=== PATIENT | male | born 1955 | race Caucasian/White ===

== ENCOUNTER 2016-08-24 00:13 | Emergency (ER) | payer SELFPAY ==
[~2016-08-24] VITALS: Ht 177.8 cm; Wt 93.0 kg
[~2016-08-24 00:13] MED LIST: ALPR0.5T PO; BUSP7.5T5 PO; CEPH-507 PO; FAMO-119 PO; HYDR-3729 PO; HYDR-3781 PO; HYDR25CA PO; HYDR28CR2 TP; METH4TAB PO; MOME15CR17 TP; MOME45CR19 TP; PRD20T PO; PRED5TAB PO; RT-ALBUINH IH
--- OUTSIDE RECORDS SUMMARY | 2016-08-24 00:21 | XMS REPORT | Continuity of Care Document ---
Author Author [facility] Organization [facility] Address Unknown Phone Unavailable Care Team Providers Care Certified Physician'S Assistant Name Role Phone NO, LOCAL PHYSICIAN PCP Unavailable Insurance Providers Payer Name Policy Number Subscriber Name Relationship Self Pay Master Hebert 18 Self / Same As Patient Advance Directives Directive Response Recorded Date/Time Advance Directives No 06/25/16 2:55pm Resuscitation Status Full Code 06/25/16 2:55pm Chief Complaint and Reason for Visit Chief Complaint Allergic Reaction Reason for Visit [id number] Problems Active Problems Medical Problem Onset Date Status Atopic dermatitis Unknown Acute Nummular eczematous dermatitis Unknown Acute Personal history of asthma Unknown Acute Rash and nonspecific skin eruption Unknown Acute Medications Current Home Medications Medication Dose Units Route Directions Days/Qty Instructions Start Date Prednisone 5 Mg 50 Mg Oral As Directed 55 10 tablets on day 1, then reduced by one tablet daily until gone 04/21/16 Cephalexin 500 Mg 500 Mg Oral Three Times A Day 21 04/21/16 Prednisone 20 Mg 40 Mg Oral Daily 10 05/24/16 Famotidine 20 Mg 20 Mg Oral Twice A Day 30 05/24/16 Mometasone Furoate 15 Gm 15 Gm Topical Daily 1 05/24/16 Albuterol Sulfate 18 Gm 2 Puff Inhalation Every 4HRS as needed for Shortness Of Breath 1 05/24/16 Hydrocodone/Acetaminophen 1 Each 1 Each Oral Every 4HRS as needed for Pain 20 05/24/16 Mometasone Furoate 45 Gm 45 Gm Topical Daily 1 06/07/16 Methylprednisolone 4 Mg 4 Mg Oral As Directed 1 Take per package directions 06/07/16 Hydroxyzine Pamoate 25 Mg 25 Mg Oral Every 6 Hours 30 10/24/16 Alprazolam 0.5 Mg 0.5 Mg Oral Every 8HRS as needed for Anxiety 15 Cephalexin 500 Mg 1,000 Mg Oral Twice A Day 40 06/25/16 Hydroxyzine Pamoate 25 Mg 25-50 Mg Oral Every 6 Hours as needed for Rash/ Itch 30 06/25/16 Famotidine 20 Mg 20 Mg Oral Twice A Day for Rash/Itch 60 06/25/16 Social History Social History Problem Response Recorded Date/Time Alcohol Use Denies Use 06/25/2016 2:55pm Recreational Drug Use No 06/25/2016 2:55pm Recent Foreign Travel No 06/25/2016 2:55pm Recent Infectious Disease Exposure No 06/25/2016 2:55pm Hospitalization with Isolation Denies 06/25/2016 2:55pm Smoking Status Current Everyday Smoker 06/25/2016 2:55pm Type Used Cigarettes 06/25/2016 2:55pm Recent Hopitalizations No 06/07/2016 5:15pm Hospitalization with Isolation Denies 06/25/2016 2:55pm Query Response Start Date Stop Date Smoking Status Current Everyday Smoker Hospital Discharge Instructions No hospital discharge instructions. Plan of Care Discharge Date 06/25/16 8:41pm Disposition 01 HOME, SELF-CARE Condition at Discharge Stable Instructions/Education Provided Eczema (Atopic Dermatitis) (DC) Prescriptions See Medication Section Referrals ARASELI VO MD - Additional Instructions/Education All discharge instructions reviewed with patient and/or family. Voiced understanding. FOLLOW UP WITH DR. VO. PROBABLY NEED A DERMATOLOGY REFERRAL. Functional Status No functional status results. Allergies, Adverse Reactions, Alerts No known allergies. Immunizations No immunization records. Vital Signs Acute Vital Signs Vital Response Date/Time Temperature (Fahrenheit) 96.9 degrees F (97.6 - 99.5) 06/25/2016 2:55pm Temperature (Calculated Celsius) 36.97592 degrees C (36.4 - 37.5) 06/25/2016 2:55pm Temperature Source Temporal 06/07/2016 6:20pm Pulse Rate (adult) 113 bpm (60 - 90) 06/25/2016 2:55pm Respiratory Rate 20 bpm (12 - 24) 06/25/2016 2:55pm O2 Sat by Pulse Oximetry 99 % (88 - 100) 06/25/2016 2:55pm Blood Pressure 126/82 mm Hg 06/25/2016 2:55pm Blood Pressure Mean 97 mm Hg 06/25/2016 2:55pm Pain Numeric Pain Scale 6 06/25/2016 2:55pm Height (Feet) 6 feet 06/25/2016 2:55pm Height (Inches) 10 inches 06/07/2016 5:15pm Height (Calculated Centimeters) 182.676276 cm 06/25/2016 2:55pm Weight (Pounds) 240 pounds 06/25/2016 2:55pm Weight (Calculated Grams) 955312.284 gm 06/07/2016 5:15pm Weight (Calculated Kilograms) 108.245663 kilograms 06/25/2016 2:55pm Capillary Refill Capillary Refill Less Than 3 Seconds 06/25/2016 2:55pm Height 6 ft 0 in Weight 240 lb Body Mass Index 32.5 kg/m^2 Results Pending Laboratory Results Test Name Collection Date/Time Procedures No known history of procedures. Encounters Encounter Location Arrival/Admit Date Discharge/Depart Date Attending Provider Departed Emergency Room [facility] 06/25/16 2:36pm 06/25 8:41pm HONEY WIN DO Departed Emergency Room [facility] 06/07/16 4:15pm 06/07 6:20pm SHEEBA PHILLIPS MD Recent Diagnosis
[2016-08-24 00:41] LABS: BASOPHILS % (AUTO) 0 % (0-10); EOSINOPHILS # (AUTO) 2.8 10^3/uL (0.0-0.3); EOSINOPHILS % (AUTO) 18 % (0-10); LYMPHOCYTES # (AUTO) 2.3 X 10^3 (1.0-4.0); LYMPHOCYTES % (AUTO) 15 % (12-44); MEAN CORPUSCULAR HEMOGLOBIN 30 PG (25-34); MEAN CORPUSCULAR HGB CONC 32 G/DL (32-36); MEAN CORPUSCULAR VOLUME 91 FL (80-99); MEAN PLATELET VOLUME 9.6 FL (7.4-10.4); MONOCYTES # (AUTO) 1.1 X 10^3 (0.0-1.0); MONOCYTES % (AUTO) 7 % (0-12); NEUTROPHILS # (AUTO) 9.3 X 10^3 (1.8-7.8); NEUTROPHILS % (AUTO) 60 % (42-75); PLATELET COUNT 267 10^3/uL (130-400); RED BLOOD COUNT 4.98 10^6/uL (4.35-5.85); RED CELL DISTRIBUTION WIDTH 13.6 % (10.0-14.5); WHITE BLOOD COUNT 15.5 10^3/uL (4.3-11.0)
[2016-08-24] MEDS ORDERED: diphenhydrAMINE 50 MG/ML INJ (BENADRYL) IVP ONE (00:45)
[2016-08-24] MEDS ORDERED: FAMOTIDINE 20MG/2ML IV (PEPCID) IVP ONE (00:45)
[2016-08-24 00:58] LABS: BAND NEUTROPHILS 0 %; BASOPHILS % (MANUAL) 0 %; EOSINOPHILS % (MANUAL) 20 %; LYMPHOCYTES % (MANUAL) 11 %; NEUTROPHILS % (MANUAL) 61 %
[2016-08-24 01:00] LABS: ALANINE AMINOTRANSFERASE 40 U/L (0-55); ALBUMIN 3.9 G/DL (3.2-4.5); ANION GAP 15 MMOL/L (5-14); ASPARTATE AMINO TRANSFERASE 36 U/L (5-34); BILIRUBIN,TOTAL 1.2 MG/DL (0.1-1.0); BLOOD UREA NITROGEN 14 MG/DL (7-18); BUN/CREATININE RATIO 14; CARBON DIOXIDE 21 MMOL/L (21-32); CHLORIDE 102 MMOL/L (98-107); CREATININE SERUM 1.01 MG/DL (0.60-1.30); GFR ESTIMATED > 60; GLUCOSE 111 MG/DL (70-105); SODIUM 138 MMOL/L (135-145); hs C REACTIVE PROTEIN 3.69 MG/DL (0.00-0.50)
[2016-08-24 01:06] LABS: POTASSIUM 4.1 MMOL/L (3.6-5.0)
[2016-08-24 01:08] LABS: BILIRUBIN,URINE NEGATIVE (NEGATIVE); KETONES,URINE NEGATIVE (NEGATIVE); LEUKOCYTE ESTERASE ,URINE 1+ (NEGATIVE); NITRITE,URINE NEGATIVE (NEGATIVE); PH,URINE 7 (5-9); PROTEIN,URINE 2+ (NEGATIVE); UROBILINOGEN,URINE 1 MG/DL (NORMAL)
[2016-08-24 01:11] LABS: ERYTHROCYTE SEDIMENTATION RATE 9 MM/HR (0-30)
--- NOTE | 2016-08-24 01:27 | ED Integumentary General ---
General Chief Complaint: Skin/Wound Problems Stated Complaint: ARMS,LEGS & NECK SWELLING Nursing Triage Note: patient reports arms swelling and burning. reports has a whole body rash and burning x 6 months Source: patient, old records Exam Limitations: no limitations History of Present Illness Time seen by provider: 00:17 Initial Comments This 60-year-old gentleman presents to the emergency room with complaints of nearly diffuse skin irritation, erythema, swelling, and itching. He has had waxing and waning episodes of these symptoms over the past month. He has been seen multiple times previously and prescribed antibiotics and steroids. Treatment in the past has helped improve symptoms. He denies any use of supplements, topical products, or medications that have not been prescribed. He cannot identify any specific exposure that might have caused this problem. He has been taking 2 showers a day to try to treat the problem. He moved to [place] from [place] a few months before symptoms began. He wonders if there is an environmental exposure causing the symptoms. He has been taking Claritin daily without any significant change. He does believe prior treatment with antibiotics and steroids did improve his symptoms temporarily. Allergies and Home Medications Allergies Coded Allergies: Penicillins (Unverified Allergy, Unknown, 08/11/16) Home Medications Albuterol Sulfate 18 Gm Hfa.aer.ad #1 2 PUFF IH Q4H PRN PRN SHORTNESS OF BREATH Prescribed by: PHAN VIVEROS on 05/24/16 184 Alprazolam 0.5 Mg Tablet #15 0.5 MG PO Q8H PRN PRN ANXIETY Prescribed by: SHEEBA PHILLIPS on 06/07/16 1808 Buspirone HCl 7.5 Mg Tablet #30 7.5 MG PO BID Prescribed by: TANMAY ZAVALA on 08/11/16 1633 Doxycycline Hyclate 100 Mg Tablet.dr #20 100 MG PO BID Prescribed by: KATY BERGMAN on 08/24/16 0248 Famotidine 20 Mg Tablet #30 20 MG PO BID Prescribed by: PHAN VIVEROS on 05/24/16 1842 Hydrocodone/Acetaminophen 1 Each Tablet #20 1 EACH PO Q4H PRN PRN PAIN Prescribed by: PHAN VIVEROS on 05/24/16 1913 Hydrocodone/Acetaminophen 1 Each Tablet #10 1 EACH PO Q6H PRN PRN PAIN Prescribed by: KATY BERGMAN on 08/24/16247 Hydrocortisone 28 Gm Cream..g. #1 28 GM TP TID PRN PRN it Prescribed by: TANMAY ZAVALA on 08/11/16 1633 Hydroxyzine Pamoate 25 Mg Capsule #30 25 MG PO Q6H Prescribed by: SHEEBA PHILLIPS on 06/07/161807 Mometasone Furoate 15 Gm Cream..g. #1 15 GM TP DAILY Prescribed by: PHAN VIVEROS on 05/24/16 184 Mometasone Furoate 45 Gm Cream..g. #1 45 GM TP DAILY Prescribed by: SHEEBA PHILLIPS on 06/07/161807 Prednisone 20 Mg Tab #4 20 MG PO DAILY Prescribed by: KATY BERGMAN on 08/24/16247 Constitutional: no symptoms reported EENTM: no symptoms reported Respiratory: cough Cardiovascular: no symptoms reported Gastrointestinal: no symptoms reported Genitourinary: no symptoms reported Musculoskeletal: no symptoms reported Skin: see HPI Psychiatric/Neurological: Anxiety Endocrine: No Symptoms Reported Past Uqxvfir-Xktfdb-Tlqgbu Hx Patient Social History Alcohol Use: Denies Use Recreational Drug Use: No Smoking Status: Current Everyday Smoker Type Used: Cigarettes Recent Foreign Travel: No Contact w/Someone Who Travel: No Recent Infectious Disease Expo: No Recent Hopitalizations: No Physical Abuse Screen: No Sexual Abuse: No Seasonal Allergies Seasonal Allergies: No Surgeries HX Surgeries: No Respiratory Hx Respiratory Disorders: Yes Respiratory Disorders: Asthma Cardiovascular Hx Cardiac Disorders: No Neurological Hx Neurological Disorders: No Reproductive System Hx Reproductive Disorders: No Genitourinary Hx Genitourinary Disorders: No Gastrointestinal Hx Gastrointestinal Disorders: No Musculoskeletal Hx Musculoskeletal Disorders: No Endocrine Hx Endocrine Disorders: No HEENT HX ENT Disorders: No Cancer Hx Cancer: No Psychosocial Hx Psychiatric Problems: No Integumentary HX Skin/Integumentary Disorder: Yes Skin/Integumentary Disorders: Pruritis (With dermatitis), Recent Skin Changes Blood Transfusions Hx Blood Disorders: No Family Medical History Significant Family History: No Pertinent Family Hx Physical Exam Vital Signs Vital Sign - Last 12Hours 08/24/16 08/24/16 00:20 02:56 Temp 99.1 Pulse 114 Resp 18 B/P 142/89 Pulse Ox 95 O2 Delivery Room Air Capillary Refill : Less Than 3 Seconds General Appearance: WD/WN moderate distress HEENT: PERRL/EOMI normal ENT inspection TMs normal pharynx normal Neck: supple normal inspection Cardiovascular: no edema no murmur tachycardia Respiratory: lungs clear normal breath sounds no respiratory distress no accessory muscle use Gastrointestinal: normal bowel sounds non tender soft Extremities: swelling Neurologic/Psychiatric: deputy commissioner II-XII nml as tested no motor/sensory deficits alert oriented x 3 other (Mild tremor, anxious) Skin: warm/dry other (Erythematous rash covering much of the body but sparing the face, hands, feet, and genitals. The rash causes skin edema, erythema, pruritus, and flaking.) Skin Problem Location: generalized Skin Problem Character: erythema, rash, tenderness, thickening, warm Progress/Results/Core Measures Results/Orders Lab Results Laboratory Tests Test 08/24/16 00:25 08/24/16 01:01 Range/Units Alanine Aminotransferase (ALT/SGPT) 40 0-55 U/L Albumin 3.9 3.2-4.5 G/DL Alkaline Phosphatase 67 40-136 U/L Anion Gap 15 H 5-14 MMOL/L Aspartate Amino Transf (AST/SGOT) 36 H 5-34 U/L BUN/Creatinine Ratio 14 Band Neutrophils 0 % Basophils # (Auto) 0.0 0.0-0.1 10^3/uL Basophils % (Manual) 0 % Basophils (%) (Auto) 0 0-10 % Blood Morphology Comment NORMAL Blood Urea Nitrogen 14 7-18 MG/DL C-Reactive Protein High Sensitivity 3.69 H 0.00-0.50 MG/DL Calcium Level 9.0 8.5-10.1 MG/DL Carbon Dioxide Level 21 21-32 MMOL/L Chloride Level 102 98-107 MMOL/L Creatinine 1.01 0.60-1.30 MG/DL Eosinophils # (Auto) 2.8 H 0.0-0.3 10^3/uL Eosinophils % (Manual) 20 % Eosinophils (%) (Auto) 18 H 0-10 % Erythrocyte Sedimentation Rate 9 0-30 MM/HR Estimat Glomerular Filtration Rate > 60 Glucose Level 111 H 70-105 MG/DL Hematocrit 46 40-54 % Hemoglobin 14.7 13.3-17.7 G/DL Lymphocytes # (Auto) 2.3 1.0-4.0 X 10^3 Lymphocytes % (Manual) 11 % Lymphocytes (%) (Auto) 15 12-44 % Mean Corpuscular Hemoglobin 30 25-34 PG Mean Corpuscular Hemoglobin Concent 32 32-36 G/DL Mean Corpuscular Volume 91 80-99 FL Mean Platelet Volume 9.6 7.4-10.4 FL Monocytes # (Auto) 1.1 H 0.0-1.0 X 10^3 Monocytes % (Manual) 8 % Monocytes (%) (Auto) 7 0-12 % Neutrophils # (Auto) 9.3 H 1.8-7.8 X 10^3 Neutrophils % (Manual) 61 % Neutrophils (%) (Auto) 60 42-75 % Platelet Count 267 130-400 10^3/uL Potassium Level 4.1 3.6-5.0 MMOL/L Red Blood Count 4.98 4.35-5.85 10^6/uL Red Cell Distribution Width 13.6 10.0-14.5 % Sodium Level 138 135-145 MMOL/L TSH Morris Testing 1.39 0.35-4.94 UIU/ML Total Bilirubin 1.2 H 0.1-1.0 MG/DL Total Protein 7.0 6.4-8.2 G/DL White Blood Count 15.5 H 4.3-11.0 10^3/uL Urine Bacteria TRACE /HPF Urine Bilirubin NEGATIVE NEGATIVE Urine Casts NONE /LPF Urine Clarity CLEAR Urine Color YELLOW Urine Crystals NONE /LPF Urine Culture Indicated YES Urine Glucose (UA) NEGATIVE NEGATIVE Urine Ketones NEGATIVE NEGATIVE Urine Leukocyte Esterase 1+ H NEGATIVE Urine Mucus NEGATIVE /LPF Urine Nitrite NEGATIVE NEGATIVE Urine Protein 2+ H NEGATIVE Urine RBC 5-10 H /HPF Urine RBC (Auto) 2+ H NEGATIVE Urine Specific [place] 1.010 L 1.016-1.022 Urine Urobilinogen 1 NORMAL MG/DL Urine WBC 2-5 /HPF Urine pH 7 5-9 My Orders Orders-KATY KIM MD Cbc With Automated Diff (08/24/16 00:28) Comprehensive Metabolic Panel (08/24/16 00:28) Hs C Reactive Protein (08/24/16 00:28) Erythrocyte Sedimentation Rate (08/24/16 00:28) Thyroid Analyzer (08/24/16 00:28) Ua Culture If Indicated (08/24/16 00:28) Saline Lock/Iv-Start (08/24/16 00:28) Chest 1 View, Ap/Pa Only (08/24/16 00:28) Diphenhydramine Injection (Benadryl Inje (08/24/16 00:45) Famotidine Injection (Pepcid Injection) (08/24/16 00:45) Manual Differential (08/24/16 00:25) Urine Culture (08/24/16 01:01) Methylprednisolone Sod Succ (Solu-Medrol (08/24/16 01:30) Lorazepam Injection (Ativan Injection) (08/24/16 01:30) Hydrocodone/Apap 5/325 Tablet (Lortab 5 (08/24/16 02:45) Doxycycline Tablet (Vibramycin Tablet) (08/24/16 02:45) Medications Given in ED Current Medications Medications Dose Ordered Sig/Rita Route Start Time Stop Time Status Last Admin Dose Admin Acetaminophen/ Hydrocodone Bitart 1 tab ONCE ONCE PO 08/24/16 02:45 08/24/16 02:46 DC 08/24/16 02:42 1 TAB Diphenhydramine HCl 50 mg ONCE ONCE IVP 08/24/16 00:45 08/24/16 00:46 DC 08/24/16 00:48 50 MG Doxycycline Hyclate 100 mg ONCE ONCE PO 08/24/16 02:45 08/24/16 02:46 DC 08/24/16 02:42 100 MG Famotidine 20 mg ONCE ONCE IVP 08/24/16 00:45 08/24/16 00:46 DC 08/24/16 00:48 20 MG Lorazepam 0.5 mg ONCE ONCE IVP 08/24/16 01:30 08/24/16 01:31 DC 08/24/16 01:35 0.5 MG Methylprednisolone Sodium Succinate 125 mg ONCE ONCE IVP 08/24/16 01:30 08/24/16 01:31 DC 08/24/16 01:24 125 MG Vital Signs/I&O Vital Sign - Last 12Hours 08/24/16 08/24/16 00:20 02:56 Temp 99.1 98.0 Pulse 114 105 Resp 18 18 B/P 142/89 Pulse Ox 95 96 O2 Delivery Room Air Blood Pressure Mean: 106 Progress Note : Progress Note Benadryl and Pepcid did not seem to improve his symptoms much. Solu-Medrol was then administered and did start to improve his symptoms. Because of his rash is uncertain but may be related to allergic exposure. He does have a notably elevated eosinophil level. Chest x-ray showed some increased density in the right lower lung which could be atelectasis versus infiltrate. Doxycycline was initiated along with his other medications. Patient has appointment with the guest laundry attendant in [place] tomorrow. He then plans to fly back to [place]. The disc of his x-ray was provided. He was encouraged to send a copy of his records from [facility] to his guest laundry attendant. Pain was treated with hydrocodone. Ativan was given for anxiety. Diagnostic Imaging Diagonstic Imaging: Xray Plain Films/CT/US/NM/MRI: chest Comments Chest x-ray viewed by me. Report not yet available. There is density in the right lower lung indicative of atelectasis versus infiltrate. Departure Impression Impression: Primary Impression: Dermatitis Additional Impressions: Eosinophilia Pulmonary infiltrate Disposition: HOME, SELF-CARE Condition: Improved Departure-Patient Inst. Decision time for Depature: 02:39 Referrals: NO,LOCAL PHYSICIAN (PCP/Family) Primary Care Physician Patient Instructions: Dermatitis Add. Discharge Instructions: Complete doxycycline as prescribed and have a repeat chest x-ray performed after antibiotics are complete. The markings on your chest x-ray may be related to early pneumonia. For itch you may use triamcinolone cream as prescribed and a small quantity of Benadryl (diphenhydramine) topical cream. Limit showering to no more than one shower per day. Keep your appointment with the guest laundry attendant tomorrow. When you have your guest laundry attendant contact information, please have records sent from [facility] to his/her office. Take the disc of your chest x-ray to your follow-up appointments. Continue taking Claritin (loratadine) but increase your dose to 10 mg twice daily. Return to the emergency room if symptoms worsen. All discharge instructions reviewed with patient and/or family. Voiced understanding. Scripts Prednisone 20 Mg Tab20 Mg PO DAILY #4 TAB Prov:KATY KIM MD 08/24/16 Hydrocodone/Acetaminophen (Hydrocodon -Acetaminophen 5-325)1 Each Tablet1 Each PO Q6H PRN PAIN #10 TAB Prov:KATY KIM MD 08/24/16 Doxycycline Hyclate 100 Mg Tablet.dr100 Mg PO BID #20 TAB Prov:KATY KIM MD 08/24/16 KATY KIM MD Aug 24, 2016 01:27
[2016-08-24] MEDS ORDERED: LORazepam INJ 2 MG/ML (ATIVAN) VIAL IVP ONE (01:30)
[2016-08-24] MEDS ORDERED: methylPREDNISolone 125 MG (Solu-MEDROL) VIAL IVP ONE (01:30)
[2016-08-24] MEDS ORDERED: HYDROcodone/APAP 5 MG/325 MG (LORTAB) TAB PO ONE (02:45)
[2016-08-24] MEDS ORDERED: DOXYCYCLINE 100 MG (VIBRAMYCIN) TABLET PO ONE (02:45)
[2016-08-24] MEDS ORDERED: DOXY-227 PO (02:48)
[2016-08-24] MEDS ORDERED: PRD20T PO (02:48)
[2016-08-24] MEDS ORDERED: HYDR-3812 PO (02:48)
[2016-08-24 02:56] VITALS: BP 136/88
--- NOTE | 2016-08-24 06:40 | Diagnostic Imaging Report ---
INDICATION: Arm swelling and burning. No comparison. FINDINGS: There is discoid atelectasis with possible infiltrate as well noted in the right lower lung. Left lung is well aerated and clear. The heart is not enlarged. No evidence of pulmonary edema. No hilar adenopathy. No pneumothorax or pleural effusion. IMPRESSION: Right basilar atelectasis with possible infiltrate as well. Followup recommended. Dictated by: Dictated on workstation # [id number]
== END 2016-08-24 02:55 | disposition home or self-care (01) ==
LOC: EDUNIT# 00:13 → ER 00:17
DX: L30.9 Dermatitis, unspecified (principal); J82 Pulmonary eosinophilia, not elsewhere classified; F17.210 Nicotine dependence, cigarettes, uncomplicated
CPT/HCPCS: 36415; 71010; 80053; 81000; 84443; 85007; 85027; 85652; 86141; 87088; 96374; 96375

== ENCOUNTER 2018-03-02 04:44 | Emergency (ER) | payer SELFPAY ==
[~2018-03-02] VITALS: Ht 177.8 cm; Wt 100.7 kg
[~2018-03-02 04:44] MED LIST changes: +ACHD5005 PO; +DOXY-227 PO
--- NOTE | 2018-03-02 05:39 | ED Integumentary General ---
General Chief Complaint: Skin/Wound Problems Stated Complaint: POSS POISON JENI OR OAK Source: patient, old records Exam Limitations: no limitations History of Present Illness Date Seen by Provider: Mar 02, 2018 Time Seen by Provider: 05:27 Initial Comments The patient presents to the ER by private conveyance with a chief complaint he is not able sleep for the past couple days because of his itching skin rash from the neck down. He says that it spares mucous membranes and genitalia. He says about a month ago he had this rash when he was up here but then he went back home to [place] and came back. When he was in [place] his doctor prescribed an antibiotic and it went away but he does not what the name of it was. As soon as he got back up here the rash started within about 6 or 7 days and has been driving him nuts the itching. His been using Benadryl off and on but says it doesn't help. He says he does not have any more of the Zyrtec was prescribed to him so he hasn't taken that. [facility] 2[facility]2 weeks ago and they put him on prednisone and Zyrtec and again that helped immensely but as soon as she stopped taking it shortly after it came back. He does not have any formal diagnosis of any skin disorders. He thinks it might be the carpet in his home that he put in because that is when his problems started. He's been seen in the past for similar eczematous skin disorders. He insists that they only occur when he is in [place]. He is using calamine lotion. Allergies and Home Medications Allergies Coded Allergies: Penicillins (Unverified Allergy, Unknown, 08/11/16) Home Medications Albuterol Sulfate 18 Gm Hfa.aer.ad, 2 PUFF IH Q4H PRN for SHORTNESS OF BREATH Prescribed by: PHAN VIVEROS on 05/24/16 184 Alprazolam 0.5 Mg Tablet, 0.5 MG PO Q8H PRN for ANXIETY Prescribed by: SHEEBA PHILLIPS on 06/07/16 1808 Buspirone HCl 7.5 Mg Tablet, 7.5 MG PO BID Prescribed by: TANMAY ZAVALA on 08/11/16 1633 Doxycycline Hyclate 100 Mg Tablet.dr, 100 MG PO BID Prescribed by: KATY BERGMAN on 08/24/16247 Famotidine 20 Mg Tablet, 20 MG PO BID Prescribed by: PHAN VIVEROS on 05/24/161841 Hydrocodone Bit/Acetaminophen 1 Each Tablet, 1 EACH PO Q6H PRN for PAIN Prescribed by: KATY BERGMAN on 08/24/16247 Hydrocodone/Acetaminophen 1 Each Tablet, 1 EACH PO Q4H PRN for PAIN Prescribed by: PHAN VIVEROS on 05/24/161912 Hydrocortisone 28 Gm Cream..g., 28 GM TP TID PRN for it Prescribed by: TANMAY ZAVALA on 08/11/16 163 Hydroxyzine Pamoate 25 Mg Capsule, 25 MG PO Q6H Prescribed by: SHEEBA PHILLIPS on 06/07/161807 Mometasone Furoate 15 Gm Cream..g., 15 GM TP DAILY Prescribed by: PHAN VIVEROS on 05/24/161841 Mometasone Furoate 45 Gm Cream..g., 45 GM TP DAILY Prescribed by: SHEEBA PHILLIPS on 06/07/161807 Prednisone 20 Mg Tab, 20 MG PO DAILY Prescribed by: KATY BERGMAN on 08/24/16247 Patient Home Medication List Home Medication List Reviewed: Yes Constitutional: No chills, No diaphoresis EENTM: No ear pain, No eye pain Respiratory: No cough, No short of breath Cardiovascular: No chest pain, No palpitations Gastrointestinal: No abdominal pain, No nausea, No vomiting Genitourinary: No discharge, No dysuria Musculoskeletal: No back pain, No joint pain Skin: see HPI, pruritus, rash Psychiatric/Neurological: Denies Headache, Denies Numbness Past Ygkzozp-Ztstmf-Ruiixk Hx Patient Social History Alcohol Use: Occasionally Uses Alcohol Beverage of Choice: CamioCamch Recreational Drug Use: No Smoking Status: Former Smoker Type Used: Cigarettes Former Smoker, Quit: Aug 15, 2016 Recent Foreign Travel: No Contact w/Someone Who Travel: No Recent Hopitalizations: No Seasonal Allergies Seasonal Allergies: No Past Medical History Surgeries: No Respiratory: Yes Asthma Cardiac: No Neurological: No Reproductive Disorders: No Genitourinary: No Gastrointestinal: No Musculoskeletal: No Endocrine: No Cancer: No Psychosocial: No Integumentary: Yes (chronic since 2016 reocurrance Eczematous vs contatc dermatitis) Eczema, Pruritis, Recent Skin Changes Blood Disorders: No Family Medical History No Pertinent Family Hx Physical Exam Vital Signs Capillary Refill : General Appearance: WD/WN, no apparent distress HEENT: PERRL/EOMI, pharynx normal Cardiovascular: normal peripheral pulses, regular rate, rhythm Respiratory: no respiratory distress, no accessory muscle use Neurologic/Psychiatric: alert, normal mood/affect, oriented x 3 Skin: normal color, warm/dry, rash (thickened, eczematous, raised, plaques and patches especially in the creases of the elbow and behind the knee. Ever in calamine lotion. Pruritic.) Progress/Results/Core Measures Results/Orders My Orders Orders - LASHON MITCHELL Hydroxyzine Oral (Vistaril Capsule) (03/02/18 05:45) Methylprednisolone Sod Succ (Solu-Medrol (03/02/18 05:45) Progress Progress Note : Time: 05:38 Progress Note Consistent with contact dermatitis. We plan to Give him some Vistaril and a slug of Solu-Medrol. We will put him on another 5 days of prednisone and encourage him to take Zyrtec twice a day as well as Vistaril as needed for breakthrough itching. Departure Impression Primary Impression: Allergic contact dermatitis Qualified Codes: L23.9 - Allergic contact dermatitis, unspecified cause Disposition: 01 HOME, SELF-CARE Condition: Stable Departure-Patient Inst. Decision time for Depature: 05:39 Referrals: NO,LOCAL PHYSICIAN (PCP/Family) Primary Care Physician Patient Instructions: Contact Dermatitis (DC) Add. Discharge Instructions: travel occupational therapist the prednisone and take 2 tablets daily for the next 5 days starting tomorrow. travel occupational therapist Zyrtec and take one tablet twice a day until not needed. travel occupational therapist the Vistaril and if you have breakthrough itching you can take one tablet of Vistaril every 6 hours as needed. Vistaril will cause drowsiness. Drink plenty of fluids. Cover the scan and a mild, hypoallergenic lotion or ointment such as Eucerin, Nutraderm, etc. Follow-up with your primary care provider in the next couple weeks and consider referral to dermatology or an fuel injection servicer. All discharge instructions reviewed with patient and/or family. Voiced understanding. Scripts Cetirizine HCl (Zyrtec) 10 Mg Capsule 10 MG PO BID for 14 Days, #30 CAP 0 Refills Prov: LASHON MITCHELL 03/02/18 Hydroxyzine Pamoate (Vistaril) 25 Mg Capsule 25 MG PO Q6H PRN for ITCHING for 14 Days, #30 CAP 0 Refills Prov: LASHON MITCHELL 03/02/18 Prednisone (Prednisone) 20 Mg Tab 40 MG PO DAILY, #10 TAB 0 Refills Prov: LASHON MITCHELL 03/02/18 LASHON MITCHELL Mar 02, 2018 05:39
[2018-03-02] MEDS ORDERED: CETI10CA PO (05:42)
[2018-03-02] MEDS ORDERED: PRD20T PO (05:42)
[2018-03-02] MEDS ORDERED: HYDR25CA PO (05:42)
[2018-03-02] MEDS ORDERED: methylPREDNISolone 125 MG (Solu-MEDROL) VIAL IM ONE (05:45)
[2018-03-02] MEDS ORDERED: hydrOXYzine (VISTARIL) 25 MG CAP PO ONE (05:45)
[2018-03-02 05:52] VITALS: BP 143/92
== END 2018-03-02 05:48 | disposition home or self-care (01) ==
LOC: EDUNIT# 04:44 → ER 04:47
DX: L23.9 Allergic contact dermatitis, unspecified cause (principal); J45.909 Unspecified asthma, uncomplicated; Z88.0 Allergy status to penicillin; Z79.51 Long term (current) use of inhaled steroids; Z79.52 Long term (current) use of systemic steroids; Z87.891 Personal history of nicotine dependence
CPT/HCPCS: 96372; 99284

== ENCOUNTER 2018-08-29 16:52 | Emergency (ER) | payer MEDICAID, OTHER ==
[~2018-08-29] VITALS: Ht 177.8 cm; Wt 95.3 kg
[~2018-08-29 16:52] MED LIST changes: +CETI10CA PO
[2018-08-29] MEDS ORDERED: RT-ALBUTEROL/IPRATROPIUM 3 ML (DUONEB) VIAL ONE (16:58)
[2018-08-29] MEDS ORDERED: RT-ALBUTEROL SULF 2.5 MG/3 ML PRE-MIX VIAL ONE (16:58)
[2018-08-29] MEDS ORDERED: RT-ALBUTEROL SULF 2.5 MG/3 ML PRE-MIX VIAL INH STA (16:58)
[2018-08-29] MEDS ORDERED: NS IV 1000 ML 1,000 ML IV SCH (16:58)
[2018-08-29] MEDS ORDERED: methylPREDNISolone 125 MG (Solu-MEDROL) VIAL IVP ONE (17:00)
[2018-08-29] MEDS ORDERED: RT-ALBUTEROL/IPRATROPIUM 3 ML (DUONEB) VIAL INH ONE ×2 (17:00→17:30)
[2018-08-29 17:06] LABS: BASOPHILS # (AUTO) 0.1 10^3/uL (0.0-0.1); BASOPHILS % (AUTO) 1 % (0-10); EOSINOPHILS % (AUTO) 9 % (0-10); HEMATOCRIT 46 % (40-54); HEMOGLOBIN 15.2 G/DL (13.3-17.7); LYMPHOCYTES # (AUTO) 3.3 X 10^3 (1.0-4.0); LYMPHOCYTES % (AUTO) 32 % (12-44); MEAN CORPUSCULAR HEMOGLOBIN 29 PG (25-34); MEAN CORPUSCULAR HGB CONC 33 G/DL (32-36); MEAN CORPUSCULAR VOLUME 88 FL (80-99); MEAN PLATELET VOLUME 9.7 FL (7.4-10.4); MONOCYTES # (AUTO) 0.9 X 10^3 (0.0-1.0); MONOCYTES % (AUTO) 9 % (0-12); NEUTROPHILS # (AUTO) 5.2 X 10^3 (1.8-7.8); NEUTROPHILS % (AUTO) 49 % (42-75); PLATELET COUNT 297 10^3/uL (130-400); RED BLOOD COUNT 5.27 10^6/uL (4.35-5.85); RED CELL DISTRIBUTION WIDTH 12.7 % (10.0-14.5); WHITE BLOOD COUNT 10.5 10^3/uL (4.3-11.0)
[2018-08-29 17:23] LABS: ALANINE AMINOTRANSFERASE 58 U/L (0-55); ALBUMIN 4.3 GM/DL (3.2-4.5); ALKALINE PHOSPHATASE 74 U/L (40-136); BILIRUBIN,TOTAL 0.6 MG/DL (0.1-1.0); BUN/CREATININE RATIO 18; CALCIUM 9.7 MG/DL (8.5-10.1); CARBON DIOXIDE 27 MMOL/L (21-32); CHLORIDE 102 MMOL/L (98-107); CREATININE SERUM 0.97 MG/DL (0.60-1.30); GFR ESTIMATED > 60; GLUCOSE 74 MG/DL (70-105); POTASSIUM 3.8 MMOL/L (3.6-5.0); SODIUM 141 MMOL/L (135-145); TOTAL PROTEIN 7.8 GM/DL (6.4-8.2)
[2018-08-29] MEDS ORDERED: RT-ALBUTEROL SULF 2.5 MG/3 ML PRE-MIX VIAL INH ONE (17:30)
--- NOTE | 2018-08-29 17:34 | Diagnostic Imaging Report ---
INDICATION: Asthma attack and wheezing. TIME OF EXAM: 5:22 p.m. COMPARISON: Correlation is made with prior study from 08/24/2016. FINDINGS: The heart size is stable. The lungs are clear. No infiltrates are seen. No effusion or pneumothorax is detected. IMPRESSION: No acute cardiopulmonary process is detected. Dictated by: Dictated on workstation # [id number]
--- NOTE | 2018-08-29 17:46 | ED Respiratory ---
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 Took 3 puff on inhaler without relief. Anxious and talking continously. Placed on NC 2l/min. Source: patient Exam Limitations: no limitations History of Present Illness Date Seen by Provider: Aug 29, 2018 Time Seen by Provider: 16:58 Initial Comments Patient presents to ER by private conveyance with chief complaint of shortness of breath wheezing. He said he was cleaning up a tool shed with his grandson and he suddenly had difficulty breathing and wheezing. He has a history of asthma. He took 3 puffs off of his albuterol inhaler with out the spacer this time and said he had no relief. He does have a spacer at home is and have available. His grandson was doing just fine. He denies any fevers chills or productive cough. He does have a dry cough. He does not wear oxygen at baseline. No chest pain nausea vomiting. Allergies and Home Medications Allergies Coded Allergies: Penicillins (Unverified Allergy, Unknown, 08/29/18) Home Medications Albuterol Sulfate 18 Gm Hfa.aer.ad, 2 PUFF IH Q4H PRN for SHORTNESS OF BREATH Prescribed by: PHAN VIVEROS on 05/24/16 184 Alprazolam 0.5 Mg Tablet, 0.5 MG PO Q8H PRN for ANXIETY Prescribed by: SHEEBA PHILLIPS on 06/07/16 1808 Benzonatate 100 Mg Capsule, 100 MG PO Q6H PRN for COUGH Prescribed by: LASHON MITCHELL on 08/29/18 1834 Buspirone HCl 7.5 Mg Tablet, 7.5 MG PO BID Prescribed by: TANMAY ZAVALA on 08/11/16 1633 Cetirizine HCl 10 Mg Capsule, 10 MG PO BID Prescribed by: LASHON MITCHELL on 03/02/18 0542 Doxycycline Hyclate 100 Mg Tablet.dr, 100 MG PO BID Prescribed by: KATY BERGMAN on 08/24/16 0248 Famotidine 20 Mg Tablet, 20 MG PO BID Prescribed by: PHAN VIVEROS on 05/24/16 1842 Hydrocodone Bit/Acetaminophen 1 Each Tablet, 1 EACH PO Q6H PRN for PAIN Prescribed by: KATY BERGMAN on 08/24/16 0248 Hydrocodone/Acetaminophen 1 Each Tablet, 1 EACH PO Q4H PRN for PAIN Prescribed by: PHAN VIVEROS on 05/24/16 191 Hydrocortisone 28 Gm Cream..g., 28 GM TP TID PRN for it Prescribed by: TANMAY ZAVALA on 08/11/16 1633 Hydroxyzine Pamoate 25 Mg Capsule, 25 MG PO Q6H Prescribed by: SHEEBA PHILLIPS on 06/07/16 180 Hydroxyzine Pamoate 25 Mg Capsule, 25 MG PO Q6H PRN for ITCHING Prescribed by: LASHON MITCHELL on 03/02/18 0542 Hydroxyzine Pamoate 25 Mg Capsule, 25 MG PO Q6H PRN for ANXIETY Prescribed by: LASHON MITCHELL on 08/29/18 183 Mometasone Furoate 15 Gm Cream..g., 15 GM TP DAILY Prescribed by: PHAN VIVEROS on 05/24/16 184 Mometasone Furoate 45 Gm Cream..g., 45 GM TP DAILY Prescribed by: SHEEBA PHILLIPS on 06/07/16 180 Prednisone 20 Mg Tab, 20 MG PO DAILY Prescribed by: KATY BERGMAN on 08/24/16 024 Prednisone 20 Mg Tab, 40 MG PO DAILY Prescribed by: LASHON MITCHELL on 03/02/18 0542 Prednisone 20 Mg Tab, 40 MG PO DAILY Prescribed by: LASHON MITCHELL on 08/29/18 183 Patient Home Medication List Home Medication List Reviewed: Yes Review of Systems Review of Systems Constitutional: No chills, No fever, No malaise EENTM: No ear discharge, No ear pain Respiratory: cough; No phlegm; short of breath, wheezing Cardiovascular: No chest pain, No edema, No palpitations Gastrointestinal: No abdominal pain, No constipation, No diarrhea, No nausea, No vomiting Genitourinary: No discharge, No dysuria Musculoskeletal: No back pain, No joint pain Skin: No pruritus, No rash Past Oaoufvf-Lvmfmd-Gglkdp Hx Patient Social History Alcohol Use: Denies Use Alcohol Beverage of Choice: Scotch Recreational Drug Use: No Smoking Status: Former Smoker Type Used: Cigarettes Former Smoker, Quit: Aug 15, 2016 2nd Hand Smoke Exposure: No Recent Foreign Travel: No Contact w/Someone Who Travel: No Recent Infectious Disease Expo: No Recent Hopitalizations: No Physical Abuse: No Sexual Abuse: No Mistreated: No Fear: No Seasonal Allergies Seasonal Allergies: No Past Medical History Surgeries: No Respiratory: Yes Asthma Cardiac: No Neurological: No Reproductive Disorders: No Genitourinary: No Gastrointestinal: No Musculoskeletal: No Endocrine: No Cancer: No Psychosocial: No Integumentary: Yes (chronic since 2016 reocurrance Eczematous vs contatc dermatitis) Eczema, Pruritis, Recent Skin Changes Blood Disorders: No Family Medical History No Pertinent Family Hx Physical Exam Vital Signs - First Documented 08/29/18 08/29/18 16:55 17:04 Temp 98.1 Pulse 106 Resp 22 B/P (MAP) 154/105 (121) Pulse Ox 98 O2 Delivery Nasal Cannula O2 Flow Rate 2.00 Capillary Refill : Less Than 3 Seconds Height: 5'10.00" Weight: 210lbs. oz. 95.775276yu; BMI Method:Stated General Appearance: WD/WN, mild distress Eyes: Bilateral Eye Normal Inspection, Bilateral Eye PERRL, Bilateral Eye EOMI HEENT: PERRL/EOMI, normal ENT inspection, TMs normal, pharynx normal Neck: non-tender, full range of motion, supple, normal inspection Respiratory: chest non-tender, respiratory distress (mild), accessory muscle use (mild); No rales; wheezing (throughout his both lungs) Cardiovascular: normal peripheral pulses, regular rate, rhythm, no edema Neurologic/Psychiatric: alert, normal mood/affect, oriented x 3 Skin: normal color, warm/dry Progress/Results/Core Measures Suspected Sepsis Recent Fever Within 48 Hours: No Infection Criteria Present: None New/Unexplained Altered Menta: No Sepsis Screen: No Definite Risk SIRS Temperature:98.1 Pulse: 106 Respiratory Rate: 22 Laboratory Tests 08/29/18 16:58: White Blood Count 10.5 Blood Pressure 154 /105 Mean: 121 Laboratory Tests 08/29/18 16:58: Creatinine 0.97, Platelet Count 297, Total Bilirubin 0.6 Results/Orders Lab Results Laboratory Tests Test 08/29/18 16:58 Range/Units White Blood Count 10.5 4.3-11.0 10^3/uL Red Blood Count 5.27 4.35-5.85 10^6/uL Hemoglobin 15.2 13.3-17.7 G/DL Hematocrit 46 40-54 % Mean Corpuscular Volume 88 80-99 FL Mean Corpuscular Hemoglobin 29 25-34 PG Mean Corpuscular Hemoglobin Concent 33 32-36 G/DL Red Cell Distribution Width 12.7 10.0-14.5 % Platelet Count 297 130-400 10^3/uL Mean Platelet Volume 9.7 7.4-10.4 FL Neutrophils (%) (Auto) 49 42-75 % Lymphocytes (%) (Auto) 32 12-44 % Monocytes (%) (Auto) 9 0-12 % Eosinophils (%) (Auto) 9 0-10 % Basophils (%) (Auto) 1 0-10 % Neutrophils # (Auto) 5.2 1.8-7.8 X 10^3 Lymphocytes # (Auto) 3.3 1.0-4.0 X 10^3 Monocytes # (Auto) 0.9 0.0-1.0 X 10^3 Eosinophils # (Auto) 1.0 H 0.0-0.3 10^3/uL Basophils # (Auto) 0.1 0.0-0.1 10^3/uL Sodium Level 141 135-145 MMOL/L Potassium Level 3.8 3.6-5.0 MMOL/L Chloride Level 102 98-107 MMOL/L Carbon Dioxide Level 27 21-32 MMOL/L Anion Gap 12 5-14 MMOL/L Blood Urea Nitrogen 17 7-18 MG/DL Creatinine 0.97 0.60-1.30 MG/DL Estimat Glomerular Filtration Rate > 60 BUN/Creatinine Ratio 18 Glucose Level 74 70-105 MG/DL Calcium Level 9.7 8.5-10.1 MG/DL Corrected Calcium 9.5 8.5-10.1 MG/DL Total Bilirubin 0.6 0.1-1.0 MG/DL Aspartate Amino Transf (AST/SGOT) 55 H 5-34 U/L Alanine Aminotransferase (ALT/SGPT) 58 H 0-55 U/L Alkaline Phosphatase 74 40-136 U/L C-Reactive Protein High Sensitivity 0.74 H 0.00-0.50 MG/DL Total Protein 7.8 6.4-8.2 GM/DL Albumin 4.3 3.2-4.5 GM/DL Micro Results Microbiology 08/29/18 Influenza Types A,B Antigen (HANS) - Final, Complete My Orders Orders - LASHON MITCHELL Albuterol Pre-Mix Nebs (Rt) (Proventil (08/29/18 16:58) Albuterol/Ipra Inhalation Soln (Duoneb I (08/29/18 17:00) Saline Lock/Iv-Start (08/29/18 16:58) Ns Iv 1000 Ml (Sodium Chloride 0.9%) (08/29/18 16:58) Cbc With Automated Diff (08/29/18 16:58) Comprehensive Metabolic Panel (08/29/18 16:58) Hs C Reactive Protein (08/29/18 16:58) Influenza A And B Antigens (08/29/18 16:58) Chest 1 View, Ap/Pa Only (08/29/18 16:58) Svn Small Volume Nebulizer (08/29/18 16:58) Methylprednisolone Sod Succ (Solu-Medrol (08/29/18 17:00) Albuterol Pre-Mix Nebs (Rt) (Proventil (08/29/18 16:58) Albuterol/Ipra Inhalation Soln (Duoneb I (08/29/18 16:58) Albuterol Pre-Mix Nebs (Rt) (Proventil (08/29/18 17:30) Albuterol/Ipra Inhalation Soln (Duoneb I (08/29/18 17:30) Svn Small Volume Nebulizer (08/29/18 17:27) Svn Small Volume Nebulizer (08/29/18 17:27) Medications Given in ED Current Medications Medications Dose Ordered Sig/Rita Route Start Time Stop Time Status Last Admin Dose Admin Albuterol Sulfate 12.5 mg ONCE ONCE INH 08/29/18 17:30 08/29/18 17:31 DC 08/29/18 17:30 12.5 MG Albuterol/ Ipratropium 3 ml ONCE ONCE INH 08/29/18 17:00 08/29/18 17:01 DC 08/29/18 17:03 3 ML Albuterol/ Ipratropium 3 ml ONCE ONCE INH 08/29/18 17:30 08/29/18 17:31 DC 08/29/18 17:30 3 ML Methylprednisolone Sodium Succinate 125 mg ONCE ONCE IVP 08/29/18 17:00 08/29/18 17:01 DC 08/29/18 17:16 125 MG Vital Signs/I&O 08/29/18 08/29/18 08/29/18 16:55 17:04 17:30 Temp 98.1 Pulse 106 Resp 22 B/P (MAP) 154/105 (121) Pulse Ox 98 98 96 O2 Delivery Nasal Cannula O2 Flow Rate 2.00 2.00 Capillary Refill : Less Than 3 Seconds Blood Pressure Mean: 121 Progress Note #1: Time: 17:45 Progress Note After a DuoNeb and 5 mg of albuterol his breath sounds are only marginally improved. Patient says he feels a little better. We've ordered an hour-long breathing treatment. His oxygen sats were 95% on room air but we put him on 2 L nasal cannula just for comfort. Chest x-ray and laboratory obtained they were unrevealing. Seems acute is having an asthma exacerbation. We gave him 125 mg of Solu-Medrol and response. We have offered to observe him overnight on Vapotherm while the steroids kick in. The patient has declined at this time as he says he has to get home and take care of his 4 grandchildren. We are going to let him finish his hour-long breathing treatment and then have him walk up and down the ER without oxygen and see if he desaturates. If he can do this then we can let him go home on steroids. Progress Note #2: Time: 18:30 Progress Note The patient's breathing has improved moderately. He says he's feeling much better. He walked up and down the ER briskly without becoming breathless and his oxygen sats did not go below 95% on room air. We'll provide him with some Vistaril for his anxiety. Encourage him to continue to use the Claritin, follow -up with primary care. We have also provided him with some Tessalon Perles for his cough. Diagnostic Imaging Diagonstic Imaging: Xray Plain Films/CT/US/NM/MRI: chest (1 view) Comments [facility] [place], [place] NAME: KARLO HEBERT [facility] REC#: [id number] PT STATUS: REG ER : 1955 PHYSICIAN: LASHON MITCHELL MD ADMIT DATE: 08/29/18/ER Draft Date of Exam:08/29/18 CHEST 1 VIEW, AP/PA ONLY INDICATION: Asthma attack and wheezing. TIME OF EXAM: 5:22 p.m. COMPARISON: Correlation is made with prior study from 08/24/2016. FINDINGS: The heart size is stable. The lungs are clear. No infiltrates are seen. No effusion or pneumothorax is detected. IMPRESSION: No acute cardiopulmonary process is detected. Dictated on workstation # [id number] Dict: 08/29/18 1731 Trans: 08/29/18 1734 [id number] Interpreted by: MARE SALDANA MD Electronically signed by: Reviewed: Reviewed by Me Departure Impression Primary Impression: Asthma exacerbation Qualified Codes: J45.901 - Unspecified asthma with (acute) exacerbation Additional Impression: Anxiety Disposition: HOME, SELF-CARE Condition: Improved Departure-Patient Inst. Decision time for Depature: 18:52 Referrals: NO,LOCAL PHYSICIAN (PCP/Family) Primary Care Physician Patient Instructions: Asthma, Adult (DC) Add. 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 Continue to use your albuterol with a spacer. Discontinue working in the seated or any other blaine environment where you have known allergen triggers. Continue taking your Claritin daily. If you have anxiety you may take one tablet of Vistaril every 6 hours as needed. If you have a cough then you should try using your albuterol inhaler and finally you can use the Tessalon Perles every 6 hours as needed in addition to mexr-eem-ojntzxr cough medicines. Follow-up with a primary care provider. Discuss referral to a medical librarian and/ or pest control service representative. All discharge instructions reviewed with patient and/or family. Voiced understanding. Scripts Hydroxyzine Pamoate (Vistaril) 25 Mg Capsule 25 MG PO Q6H PRN for ANXIETY, #30 CAP 0 Refills Prov: LASHON MITCHELL 08/29/18 Benzonatate (TESSALON PERLES) 100 Mg Capsule 100 MG PO Q6H PRN for COUGH, #30 CAP 0 Refills Prov: LASHON MITCHELL 08/29/18 Prednisone (Prednisone) 20 Mg Tab 40 MG PO DAILY for 6 Days, #12 TAB 0 Refills Prov: LASHON MITCHELL 08/29/18 LASHON MITCHELL Aug 29, 2018 17:46
--- NOTE | 2018-08-29 18:30 | NUR ---
ambulated in [place] without soa
[2018-08-29] MEDS ORDERED: PRD20T PO (18:34)
[2018-08-29] MEDS ORDERED: BENZ100C18 PO (18:34)
[2018-08-29] MEDS ORDERED: HYDR25CA PO (18:34)
[2018-08-29 19:07] VITALS: BP 136/71
== END 2018-08-29 19:07 | disposition home or self-care (01) ==
LOC: EDUNIT# 16:52 → ER 16:53
DX: J45.901 Unspecified asthma with (acute) exacerbation (principal); F41.9 Anxiety disorder, unspecified; Z87.891 Personal history of nicotine dependence; Z88.0 Allergy status to penicillin; Z79.51 Long term (current) use of inhaled steroids; Z79.52 Long term (current) use of systemic steroids
CPT/HCPCS: 36415; 71045; 80053; 85025; 86141; 87804; 94640

== ENCOUNTER 2019-01-15 15:21 | Emergency (ER) | payer MEDICAID ==
[~2019-01-15] VITALS: Ht 177.8 cm; Wt 95.3 kg
[~2019-01-15 15:21] MED LIST changes: +BENZ100C18 PO
--- NOTE | 2019-01-15 17:04 | Diagnostic Imaging Report ---
INDICATION: Left leg swelling. Left leg venous Doppler study was performed in the routine fashion with color flow Doppler and waveform analysis. FINDINGS: The left common femoral vein, superficial femoral vein, popliteal vein and visualized portion of the posterior tibial vein show normal compressibility and venous flow patterns. There is normal augmentation. IMPRESSION: No evidence of deep vein thrombosis of the major veins of the left leg. Dictated by: Dictated on workstation # [id number]
[2019-01-15 17:19] LABS: BASOPHILS % (AUTO) 0 % (0-10); EOSINOPHILS # (AUTO) 0.4 10^3/uL (0.0-0.3); EOSINOPHILS % (AUTO) 5 % (0-10); HEMATOCRIT 45 % (40-54); HEMOGLOBIN 14.9 G/DL (13.3-17.7); LYMPHOCYTES # (AUTO) 1.7 X 10^3 (1.0-4.0); LYMPHOCYTES % (AUTO) 18 % (12-44); MEAN CORPUSCULAR HEMOGLOBIN 29 PG (25-34); MEAN CORPUSCULAR HGB CONC 33 G/DL (32-36); MEAN CORPUSCULAR VOLUME 87 FL (80-99); MEAN PLATELET VOLUME 9.2 FL (7.4-10.4); MONOCYTES # (AUTO) 0.8 X 10^3 (0.0-1.0); MONOCYTES % (AUTO) 9 % (0-12); NEUTROPHILS # (AUTO) 6.2 X 10^3 (1.8-7.8); NEUTROPHILS % (AUTO) 68 % (42-75); PLATELET COUNT 294 10^3/uL (130-400); RED CELL DISTRIBUTION WIDTH 12.6 % (10.0-14.5); WHITE BLOOD COUNT 9.2 10^3/uL (4.3-11.0)
[2019-01-15] MEDS ORDERED: CLINDAMYCIN 900 MG/50 ML IVPB 50 ML IV ONE (17:30)
[2019-01-15] MEDS ORDERED: CLIN300C11 PO (17:31)
--- NOTE | 2019-01-15 17:31 | ED General ---
General Chief Complaint: Lower Extremity Stated Complaint: L LEG SWELLING Nursing Triage Note: Ambulatory to triage. Pt c/o L leg pain and swelling in the calf and ankle areas. Pt reports pain began approximately 5 days in the upper back thigh, and is now radiating to the calf. Pt reports swelling has increased dramatically today. Pt's calf is warm to the touch. Nursing Sepsis Screen: No Definite Risk Source of Information: Patient Exam Limitations: No Limitations History of Present Illness Date Seen by Provider: Jan 15, 2019 Time Seen by Provider: 16:35 Initial Comments This 63-year-old gentleman presents to the emergency room with erythema, pain, heat and swelling of the posterior left lower leg. It started in a small area just above the be and has now spread down through the posterior calf to the ankle. He has swelling from the knee to the ankle. He denies any fever. He denies risk factors for DVT such as long travel, recent surgery, or routine smoking. He has never had a DVT. He is concerned about the possibility of blood clot. There was no injury. Allergies and Home Medications Allergies Coded Allergies: Penicillins (Unverified Allergy, Unknown, 08/29/18) Home Medications Albuterol Sulfate 18 Gm Hfa.aer.ad, 2 PUFF IH Q4H PRN for SHORTNESS OF BREATH Prescribed by: PHAN VIVEROS on 05/24/16 1846 Alprazolam 0.5 Mg Tablet, 0.5 MG PO Q8H PRN for ANXIETY Prescribed by: SHEEBA PHILLIPS on 06/07/16 1808 Benzonatate 100 Mg Capsule, 100 MG PO Q6H PRN for COUGH Prescribed by: LASHON MITCHELL on 08/29/18 1834 Buspirone HCl 7.5 Mg Tablet, 7.5 MG PO BID Prescribed by: TANMAY ZAVALA on 08/11/16 1633 Cetirizine HCl 10 Mg Capsule, 10 MG PO BID Prescribed by: LASHON MITCHELL on 03/02/18 0542 Clindamycin HCl 300 Mg Capsule, 300 MG PO QID Prescribed by: KATY BERGMAN on 01/15/19 1731 Doxycycline Hyclate 100 Mg Tablet.dr, 100 MG PO BID Prescribed by: KATY BERGMAN on 08/24/16 0248 Famotidine 20 Mg Tablet, 20 MG PO BID Prescribed by: PHAN VIVEROS on 05/24/161841 Hydrocodone Bit/Acetaminophen 1 Each Tablet, 1 EACH PO Q6H PRN for PAIN Prescribed by: KATY BERGMAN on 08/24/16247 Hydrocodone/Acetaminophen 1 Each Tablet, 1 EACH PO Q4H PRN for PAIN Prescribed by: PHAN VIVEROS on 05/24/16 191 Hydrocortisone 28 Gm Cream..g., 28 GM TP TID PRN for it Prescribed by: TANMAY ZAVALA on 08/11/16 1633 Hydroxyzine Pamoate 25 Mg Capsule, 25 MG PO Q6H Prescribed by: SHEEBA PHILLIPS on 06/07/161807 Hydroxyzine Pamoate 25 Mg Capsule, 25 MG PO Q6H PRN for ITCHING Prescribed by: LASHON MITCHELL on 03/02/18 05 Hydroxyzine Pamoate 25 Mg Capsule, 25 MG PO Q6H PRN for ANXIETY Prescribed by: LASHON MITCHELL on 08/29/181833 Mometasone Furoate 15 Gm Cream..g., 15 GM TP DAILY Prescribed by: PHAN VIVEROS on 05/24/161841 Mometasone Furoate 45 Gm Cream..g., 45 GM TP DAILY Prescribed by: SHEEBA PHILLIPS on 06/07/161807 Prednisone 20 Mg Tab, 20 MG PO DAILY Prescribed by: KATY BERGMAN on 08/24/16247 Prednisone 20 Mg Tab, 40 MG PO DAILY Prescribed by: LASHON MITCHELL on 03/02/18541 Prednisone 20 Mg Tab, 40 MG PO DAILY Prescribed by: LASHON MITCHELL on 08/29/181833 Patient Home Medication List Home Medication List Reviewed: Yes Review of Systems Review of Systems Constitutional: no symptoms reported EENTM: no symptoms reported Respiratory: no symptoms reported Cardiovascular: no symptoms reported Gastrointestinal: no symptoms reported Genitourinary: no symptoms reported Musculoskeletal: see HPI Skin: see HPI Psychiatric/Neurological: No Symptoms Reported Hematologic/Lymphatic: No Symptoms Reported Immunological/Allergic: no symptoms reported Past Bgqqpxf-Nsrtmg-Sygwie Hx Past Med/Social Hx: Reviewed Nursing Past Med/Soc Hx Patient Social History Alcohol Use: Denies Use Number of Drinks Today: EE Alcohol Beverage of Choice: Scotch Recreational Drug Use: No Smoking Status: Current Someday Smoker Type Used: Cigarettes Former Smoker, Quit: Aug 15, 2016 2nd Hand Smoke Exposure: No Recent Foreign Travel: No Contact w/Someone Who Travel: No Recent Infectious Disease Expo: No Recent Hopitalizations: No Seasonal Allergies Seasonal Allergies: Yes Past Medical History Surgeries: No Respiratory: Yes Asthma Cardiac: No Neurological: No Reproductive Disorders: No Genitourinary: No Gastrointestinal: No Musculoskeletal: No Endocrine: No Cancer: No Psychosocial: No Integumentary: Yes (chronic since 2016 reocurrance Eczematous vs contatc dermatitis) Eczema, Pruritis, Recent Skin Changes Blood Disorders: No Family Medical History No Pertinent Family Hx Physical Exam Vital Signs Vital Signs - First Documented 01/15/19 15:35 Temp 98.6 Pulse 80 Resp 18 B/P (MAP) 137/80 (99) Pulse Ox 93 O2 Delivery Room Air Capillary Refill : Less Than 3 Seconds Height, Weight, BMI Height: 5'10.00" Weight: 210lbs. oz. 95.329976mw; BMI Method:Stated General Appearance: No Apparent Distress, WD/WN HEENT: Normal ENT Inspection Neck: Normal Inspection Respiratory: Lungs Clear, Normal Breath Sounds, No Accessory Muscle Use, No Respiratory Distress Cardiovascular: Regular Rate, Rhythm, No Murmur, Normal Peripheral Pulses Extremity: Other (left leg demonstrates edema from the knee through the ankle. There is warm and blanching tender erythema on the posterior aspect of the lower leg extending from just above the knee to the mid lower leg. There is no discrete fluctuance to suggest abscess.) Neurologic/Psychiatric: Alert, Oriented x3, No Motor/Sensory Deficits, Normal Mood/Affect, director apparel II-XII Norm as Tested Skin: Warm/Dry, Other (see extremity exam above) Progress/Results/Core Measures Suspected Sepsis Recent Fever Within 48 Hours: No Infection Criteria Present: None New/Unexplained Altered Menta: No Sepsis Screen: No Definite Risk SIRS Temperature:98.6 Pulse: 80 Respiratory Rate: 18 Laboratory Tests 01/15/19 17:10: White Blood Count 9.2 Blood Pressure 137 /80 Mean: 99 Laboratory Tests 01/15/19 17:10: Creatinine 1.01, Platelet Count 294, Total Bilirubin 0.6 Results/Orders Lab Results Laboratory Tests Test 01/15/19 17:10 Range/Units White Blood Count 9.2 4.3-11.0 10^3/uL Red Blood Count 5.11 4.35-5.85 10^6/uL Hemoglobin 14.9 13.3-17.7 G/DL Hematocrit 45 40-54 % Mean Corpuscular Volume 87 80-99 FL Mean Corpuscular Hemoglobin 29 25-34 PG Mean Corpuscular Hemoglobin Concent 33 32-36 G/DL Red Cell Distribution Width 12.6 10.0-14.5 % Platelet Count 294 130-400 10^3/uL Mean Platelet Volume 9.2 7.4-10.4 FL Neutrophils (%) (Auto) 68 42-75 % Lymphocytes (%) (Auto) 18 12-44 % Monocytes (%) (Auto) 9 0-12 % Eosinophils (%) (Auto) 5 0-10 % Basophils (%) (Auto) 0 0-10 % Neutrophils # (Auto) 6.2 1.8-7.8 X 10^3 Lymphocytes # (Auto) 1.7 1.0-4.0 X 10^3 Monocytes # (Auto) 0.8 0.0-1.0 X 10^3 Eosinophils # (Auto) 0.4 H 0.0-0.3 10^3/uL Basophils # (Auto) 0.0 0.0-0.1 10^3/uL Sodium Level 139 135-145 MMOL/L Potassium Level 3.4 L 3.6-5.0 MMOL/L Chloride Level 102 98-107 MMOL/L Carbon Dioxide Level 29 21-32 MMOL/L Anion Gap 8 5-14 MMOL/L Blood Urea Nitrogen 12 7-18 MG/DL Creatinine 1.01 0.60-1.30 MG/DL Estimat Glomerular Filtration Rate > 60 BUN/Creatinine Ratio 12 Glucose Level 88 70-105 MG/DL Calcium Level 9.6 8.5-10.1 MG/DL Corrected Calcium 9.4 8.5-10.1 MG/DL Total Bilirubin 0.6 0.1-1.0 MG/DL Aspartate Amino Transf (AST/SGOT) 22 5-34 U/L Alanine Aminotransferase (ALT/SGPT) 35 0-55 U/L Alkaline Phosphatase 71 40-136 U/L C-Reactive Protein High Sensitivity 3.58 H 0.00-0.50 MG/DL Total Protein 7.2 6.4-8.2 GM/DL Albumin 4.3 3.2-4.5 GM/DL My Orders Orders - KATY KIM MD Cbc With Automated Diff (01/15/19 16:40) Comprehensive Metabolic Panel (01/15/19 16:40) Hs C Reactive Protein (01/15/19 16:40) Us Venous Lower Ext Lt (01/15/19 16:40) Ed Iv/Invasive Line Start (01/15/19 16:40) Clindamycin 900 Mg/50 Ml Ivpb (Cleocin P (01/15/19 17:30) Vital Signs/I&O Capillary Refill : Less Than 3 Seconds Blood Pressure Mean: 99 Progress Note : Progress Note Ultrasound of the left leg was negative for DVT. Patient likely has cellulitis. Labs were obtained. A dose of IV clindamycin was administered for initial antibiotic therapy. Return precautions were reviewed. Diagnostic Imaging Diagonstic Imaging: Ultrasound Plain Films/CT/US/NM/MRI: leg Comments NAME: KARLO HEBERT [facility] REC#: [id number] PT STATUS: REG ER : 1955 PHYSICIAN: KATY KIM MD ADMIT DATE: 01/15/19/ER Signed Date of Exam: 01/15/19 US VENOUS LOWER EXT LT INDICATION: Left leg swelling. Left leg venous Doppler study was performed in the routine fashion with color flow Doppler and waveform analysis. FINDINGS: The left common femoral vein, superficial femoral vein, popliteal vein and visualized portion of the posterior tibial vein show normal compressibility and venous flow patterns. There is normal augmentation. IMPRESSION: No evidence of deep vein thrombosis of the major veins of the left leg. Dictated by: Dictated on workstation # [id number] Dict: 01/15/191702 Trans: 01/15/191702 Interpreted by: MERRY MEEK MD Electronically signed by: MERRY MEEK MD 01/15/191702 Reviewed: Reviewed by Me Departure Impression Primary Impression: Cellulitis of left leg Disposition: 01 HOME, SELF-CARE Condition: Improved Departure-Patient Inst. Decision time for Depature: 17:29 Referrals: NO,LOCAL PHYSICIAN (PCP/Family) Primary Care Physician Patient Instructions: Cellulitis (Skin Infection), Adult (DC) Add. Discharge Instructions: Complete your antibiotics as prescribed. Return to care in the ER if you have worsening symptoms including spreading redness, increasing swelling, increasing pain, or fevers over 100. You may take Tylenol and/or ibuprofen for pain. Elevate your foot toward the level of your heart is much as possible to prevent swelling. All discharge instructions reviewed with patient and/or family. Voiced understanding. Scripts Clindamycin HCl (Clindamycin HCl) 300 Mg Capsule 300 MG PO QID, #40 CAP Prov: KATY KIM MD 01/15/19 KATY KIM MD Jan 15, 2019 17:31
[2019-01-15 17:36] LABS: ALANINE AMINOTRANSFERASE 35 U/L (0-55); ALBUMIN 4.3 GM/DL (3.2-4.5); ALKALINE PHOSPHATASE 71 U/L (40-136); BILIRUBIN,TOTAL 0.6 MG/DL (0.1-1.0); BUN/CREATININE RATIO 12; CALCIUM 9.6 MG/DL (8.5-10.1); CARBON DIOXIDE 29 MMOL/L (21-32); CHLORIDE 102 MMOL/L (98-107); CREATININE SERUM 1.01 MG/DL (0.60-1.30); GFR ESTIMATED > 60; GLUCOSE 88 MG/DL (70-105); POTASSIUM 3.4 MMOL/L (3.6-5.0); SODIUM 139 MMOL/L (135-145); TOTAL PROTEIN 7.2 GM/DL (6.4-8.2)
[2019-01-15 18:28] VITALS: BP 127/92
--- OUTSIDE RECORDS SUMMARY | 2019-01-15 23:02 | XMS REPORT ---
Author Author LUCRECIA BURGOS [facility] Address [address] [place] [address] Care Team Providers Care Grassroots Organizer Name Role Phone LUCRECIA BURGOS Unavailable PROBLEMS Type Condition ICD9-CM Code NZJ15-PA Code Onset Dates Condition Status SNOMED Code Problem Gastroesophageal reflux disease, esophagitis presence not specified K21.9 Active 277370028 Problem Atopic dermatitis, unspecified type L20.9 Active 19379845 Problem Hypertriglyceridemia E78.1 Active 789764591 ALLERGIES Substance Reaction Event Type Date Status Penicillin V Potassium hives Drug Allergy Mar, Active ENCOUNTERS Encounter Location Date Diagnosis [facility] [id number] [place] [phone] Apr, [facility] [id number] [place] [address] Apr, [facility] [id number] [place] [address] Mar, [facility] [id number] [place] [address] Mar, Atopic dermatitis, unspecified type L20.9 [facility] [id number] [place] [address] Mar, [facility] [id number] [place] [address] Mar, Atopic dermatitis, unspecified type L20.9 ; Bronchitis J40 ; Gastroesophageal reflux disease, esophagitis presence not specified K21.9 and Impetigo L01.00 [facility] [id number] [place] [address] Mar, [facility] [address] [place] [address] Mar, Hypertriglyceridemia E78.1 [place] [id number] [place] [address] Feb, Dermatitis L30.9 ; Screening for lipoid disorders Z13.220 ; Other specified personal risk factors, not elsewhere classified Z91.89 ; Encounter for screening for other viral diseases Z11.59 ; Screening for thyroid disorder Z13.29 and Screening for prostate cancer Z12.5 [place] [id number] [place] [address] Feb, [facility] [address] [address] Feb, Atopic dermatitis, unspecified type L20.9 [facility] [place] [id number] [place] [phone] Jan, Dermatitis due to plants, including poison janette, sumac, and oak L25.5 IMMUNIZATIONS No Known Immunizations SOCIAL HISTORY Never Assessed REASON FOR VISIT stomach pain and rash, cough x 2 months----DBennettRN PLAN OF CARE Activity Details Follow Up if not improving with PCP or reg follow up Reason: VITAL SIGNS Height 70 in 2018-03-31 Weight 227 lbs 2018-03-31 Temperature 98.2 degrees Fahrenheit 2018-03-31 Heart Rate 80 bpm 2018-03-31 Respiratory Rate 20 2018-03-31 BMI 32.57 kg/m2 2018-03-31 Blood pressure systolic 134 mmHg 2018-03-31 Blood pressure diastolic 72 mmHg 2018-03-31 MEDICATIONS Medication Instructions Dosage Frequency Start Date End Date Duration Status ProAir HFA 108 (90 Base) MCG/ACT Inhalation every 6 hrs 2 puffs as needed 6h Mar, 30 days Active Pimecrolimus 1 % Externally Twice a day 1 application to affected area 12h Feb, Mar, 10 days Not-Taking HydrOXYzine Pamoate 50 mg Orally every 6 hrs 1 capsule as needed 6h Feb, 30 day(s) Active Zantac 150 mg Orally twice a day 1 tablet 12h Mar, 30 day(s) Active Cephalexin 500 mg Orally 3 times a day 1 capsule 8h Mar, Mar, 07 days Active Cetirizine HCl 10 MG Orally Once a day 1 tablet 24h 90 Active RESULTS No Results PROCEDURES No Known procedures INSTRUCTIONS MEDICATIONS ADMINISTERED No Known Medications
--- OUTSIDE RECORDS SUMMARY | 2019-01-15 23:02 | XMS REPORT ---
Author Author LUCRECIA BURGOS [facility] Address [address] [place] [address] Care Team Providers Care Strategy Consultant Name Role Phone LUCRECIA BURGOS Unavailable PROBLEMS Type Condition ICD9-CM Code WOX50-FY Code Onset Dates Condition Status SNOMED Code Problem Gastroesophageal reflux disease, esophagitis presence not specified K21.9 Active 086401759 Problem Atopic dermatitis, unspecified type L20.9 Active 12854806 Problem Hypertriglyceridemia E78.1 Active 285568772 ALLERGIES No Information ENCOUNTERS Encounter Location Date Diagnosis [facility] [address] [address] Apr, [facility] [address] [address] Apr, [facility] [address] [address] Mar, [facility] [address] [address] Mar, Atopic dermatitis, unspecified type L20.9 [facility] [address] [address] Mar, [facility] [address] [address] Mar, Atopic dermatitis, unspecified type L20.9 ; Bronchitis J40 ; Gastroesophageal reflux disease, esophagitis presence not specified K21.9 and Impetigo L01.00 [facility] [address] [address] Mar, [facility] [address] [address] Mar, Hypertriglyceridemia E78.1 [facility] [id number] [address] Feb, Dermatitis L30.9 ; Screening for lipoid disorders Z13.220 ; Other specified personal risk factors, not elsewhere classified Z91.89 ; Encounter for screening for other viral diseases Z11.59 ; Screening for thyroid disorder Z13.29 and Screening for prostate cancer Z12.5 [place] [id number] [place] [address] Feb, [facility] [address] [place] [address] Feb, Atopic dermatitis, unspecified type L20.9 [facility] [address] [place] [phone] Jan, Dermatitis due to plants, including poison janette, sumac, and oak L25.5 IMMUNIZATIONS No Known Immunizations SOCIAL HISTORY Never Assessed REASON FOR VISIT med change PLAN OF CARE VITAL SIGNS MEDICATIONS Unknown Medications RESULTS No Results PROCEDURES No Known procedures INSTRUCTIONS MEDICATIONS ADMINISTERED No Known Medications
--- OUTSIDE RECORDS SUMMARY | 2019-01-15 23:02 | XMS REPORT ---
Author Author LUCRECIA BURGOS [facility] Address [address] [place] [address] Care Team Providers Care Top Steep Tender Name Role Phone LUCRECIA BURGOS Unavailable PROBLEMS Type Condition ICD9-CM Code DLB72-JA Code Onset Dates Condition Status SNOMED Code Problem Gastroesophageal reflux disease, esophagitis presence not specified K21.9 Active 061797256 Problem Atopic dermatitis, unspecified type L20.9 Active 32714130 Problem Hypertriglyceridemia E78.1 Active 641433239 ALLERGIES No Information ENCOUNTERS Encounter Location Date Diagnosis [place] [id number] [address] Mar, [facility] [address] [address] Mar, Atopic dermatitis, unspecified type L20.9 [place] [address] [address] Mar, [place] [address] [address] Mar, Atopic dermatitis, unspecified type L20.9 ; Bronchitis J40 ; Gastroesophageal reflux disease, esophagitis presence not specified K21.9 and Impetigo L01.00 [place] [address] [place] [id number] [place] [address] Mar, [place] [address] [address] Mar, Hypertriglyceridemia E78.1 [place] [address] [address] Feb, Dermatitis L30.9 ; Screening for lipoid disorders Z13.220 ; Other specified personal risk factors, not elsewhere classified Z91.89 ; Encounter for screening for other viral diseases Z11.59 ; Screening for thyroid disorder Z13.29 and Screening for prostate cancer Z12.5 [facility] [address] [address] Feb, [place] [id number] [place] [address] Feb, Atopic dermatitis, unspecified type L20.9 [address] [place] [address] Jan, Dermatitis due to plants, including poison janette, sumac, and oak L25.5 IMMUNIZATIONS No Known Immunizations SOCIAL HISTORY Never Assessed REASON FOR VISIT med question PLAN OF CARE VITAL SIGNS MEDICATIONS Unknown Medications RESULTS No Results PROCEDURES No Known procedures INSTRUCTIONS MEDICATIONS ADMINISTERED No Known Medications
--- OUTSIDE RECORDS SUMMARY | 2019-01-15 23:02 | XMS REPORT ---
Author Author LUCRECIA BURGOS [facility] Address [address] [place] [address] Care Team Providers Care Fleece Tier Name Role Phone LUCRECIA BURGOS Unavailable PROBLEMS Type Condition ICD9-CM Code FRU87-NO Code Onset Dates Condition Status SNOMED Code Problem Gastroesophageal reflux disease, esophagitis presence not specified K21.9 Active 305078971 Problem Atopic dermatitis, unspecified type L20.9 Active 32744871 Problem Hypertriglyceridemia E78.1 Active 646355866 ALLERGIES Substance Reaction Event Type Date Status Penicillin V Potassium hives Drug Allergy Feb, Active ENCOUNTERS Encounter Location Date Diagnosis [place] [address] [address] Mar, [place] [address] [address] Mar, Atopic dermatitis, unspecified type L20.9 [place] [address] [address] Mar, [place] [address] [place] [id number] [place] [address] Mar, Atopic dermatitis, unspecified type L20.9 ; Bronchitis J40 ; Gastroesophageal reflux disease, esophagitis presence not specified K21.9 and Impetigo L01.00 [place] [address] [place] [id number] [place] [address] Mar, [place] [address] [address] Mar, Hypertriglyceridemia E78.1 [place] [address] [address] Feb, Dermatitis L30.9 ; Screening for lipoid disorders Z13.220 ; Other specified personal risk factors, not elsewhere classified Z91.89 ; Encounter for screening for other viral diseases Z11.59 ; Screening for thyroid disorder Z13.29 and Screening for prostate cancer Z12.5 [facility] [address] [facility] [id number] [address] Feb, [facility] [id number] [address] Feb, Atopic dermatitis, unspecified type L20.9 [facility] [id number] [address] Jan, Dermatitis due to plants, including poison janette, sumac, and oak L25.5 IMMUNIZATIONS Vaccine Route Administration Date Status DEPO MEDROL 40 MG/ML IM Intramuscular March 13, 2018 Administered DEXAMETHASONE 20MG/5 ML (PER 1 MG) IM Intramuscular March 13, 2018 Administered SOCIAL HISTORY Never Assessed REASON FOR VISIT [facility], Pt states he has a rash all over his body. Itching reddne ss and burning. , Pt states he was in ER 03/01 for rash. PLAN OF CARE Activity Details Follow Up 3 months or as indicated by lab Reason: VITAL SIGNS Height 70 in 2018-03-13 Weight 230.5 lbs 2018-03-13 Temperature 97.6 degrees Fahrenheit 2018-03-13 Heart Rate 83 bpm 2018-03-13 Respiratory Rate 20 2018-03-13 BMI 33.07 kg/m2 2018-03-13 Blood pressure systolic 138 mmHg 2018-03-13 Blood pressure diastolic 90 mmHg 2018-03-13 MEDICATIONS Medication Instructions Dosage Frequency Start Date End Date Duration Status Cetirizine HCl 10 MG Orally Once a day 1 tablet 24h 90 Active Pimecrolimus 1 % Externally Twice a day 1 application to affected area 12h Feb, Mar, 10 days Active HydrOXYzine Pamoate 50 mg Orally every 6 hrs 1 capsule as needed 6h Feb, 30 day(s) Active RESULTS No Results PROCEDURES Procedure Date Ordered Result Body Site COMPLETE CBC W/AUTO DIFF WBC March 13, 2018 LIPID PANEL March 13, 2018 DEPO MEDROL 40 MG/ML March 13, 2018 THER/PROPH/DIAG INJ, SC/IM March 13, 2018 ASSAY THYROID STIM HORMONE March 13, 2018 No Charge March 13, 2018 DEXAMETHASONE 20MG/5 ML (PER 1 MG) March 13, 2018 ASSAY OF PSA, TOTAL March 13, 2018 INSTRUCTIONS MEDICATIONS ADMINISTERED No Known Medications
--- OUTSIDE RECORDS SUMMARY | 2019-01-15 23:02 | XMS REPORT ---
Author Author MART BECKER [facility] Address [address] [place] [address] Care Team Providers Care Operating Systems Programmer Name Role Phone MART BECKER Unavailable PROBLEMS Type Condition ICD9-CM Code ESM20-EC Code Onset Dates Condition Status SNOMED Code Problem Gastroesophageal reflux disease, esophagitis presence not specified K21.9 Active 437114093 Problem Atopic dermatitis, unspecified type L20.9 Active 08018165 Problem Hypertriglyceridemia E78.1 Active 901616281 ALLERGIES No Information ENCOUNTERS Encounter Location Date Diagnosis [place] [address] [address] Mar, [place] [address] [address] Mar, Atopic dermatitis, unspecified type L20.9 [place] [address] [address] Mar, [place] [address] [address] Mar, Atopic dermatitis, unspecified type L20.9 ; Bronchitis J40 ; Gastroesophageal reflux disease, esophagitis presence not specified K21.9 and Impetigo L01.00 [place] [address] [address] Mar, [place] [address] [address] Mar, Hypertriglyceridemia E78.1 [place] [address] [address] Feb, Dermatitis L30.9 ; Screening for lipoid disorders Z13.220 ; Other specified personal risk factors, not elsewhere classified Z91.89 ; Encounter for screening for other viral diseases Z11.59 ; Screening for thyroid disorder Z13.29 and Screening for prostate cancer Z12.5 [facility] [address], [place] [address] Feb, [address] [place] [address] Feb, Atopic dermatitis, unspecified type L20.9 [address] [place] [address] Jan, Dermatitis due to plants, including poison janette, sumac, and oak L25.5 IMMUNIZATIONS No Known Immunizations SOCIAL HISTORY Never Assessed REASON FOR VISIT Requests return call/Complaint PLAN OF CARE VITAL SIGNS MEDICATIONS Unknown Medications RESULTS No Results PROCEDURES No Known procedures INSTRUCTIONS MEDICATIONS ADMINISTERED No Known Medications
--- OUTSIDE RECORDS SUMMARY | 2019-01-15 23:02 | XMS REPORT ---
Author Author LUCRECIA BURGOS [facility] Address [address] [place] [address] Care Team Providers Care Instrumentation Controls Engineer Name Role Phone LUCRECIA BURGOS Unavailable PROBLEMS Type Condition ICD9-CM Code VRB10-VF Code Onset Dates Condition Status SNOMED Code Problem Gastroesophageal reflux disease, esophagitis presence not specified K21.9 Active 886280406 Problem Atopic dermatitis, unspecified type L20.9 Active 61033091 Problem Hypertriglyceridemia E78.1 Active 319723776 ALLERGIES No Information ENCOUNTERS Encounter Location Date Diagnosis [facility] [address] [address] Apr, [facility] [address] [address] Apr, [facility] [address] [address] Mar, [facility] [address] [address] Mar, Atopic dermatitis, unspecified type L20.9 [facility] [address] [address] Mar, [facility] [address] [address] Mar, Atopic dermatitis, unspecified type L20.9 ; Bronchitis J40 ; Gastroesophageal reflux disease, esophagitis presence not specified K21.9 and Impetigo L01.00 [facility] [address] [address] Mar, [facility] [address] [address] Mar, Hypertriglyceridemia E78.1 [facility] [address] [place] [address] Feb, Dermatitis L30.9 ; Screening for lipoid disorders Z13.220 ; Other specified personal risk factors, not elsewhere classified Z91.89 ; Encounter for screening for other viral diseases Z11.59 ; Screening for thyroid disorder Z13.29 and Screening for prostate cancer Z12.5 [place] [id number] [place] [address] Feb, [facility] [address] [place] [address] Feb, Atopic dermatitis, unspecified type L20.9 [facility] IN [address] [place] [address] Jan, Dermatitis due to plants, including poison janette, sumac, and oak L25.5 IMMUNIZATIONS No Known Immunizations SOCIAL HISTORY Never Assessed REASON FOR VISIT Refill request PLAN OF CARE VITAL SIGNS MEDICATIONS Unknown Medications RESULTS No Results PROCEDURES No Known procedures INSTRUCTIONS MEDICATIONS ADMINISTERED No Known Medications
--- OUTSIDE RECORDS SUMMARY | 2019-01-15 23:02 | XMS REPORT ---
Author Author LUCRECIA BURGOS [facility] Address [address] [place] [address] Care Team Providers Care Brand Ambassador Promotional Model Name Role Phone LUCRECIA BURGOS Unavailable PROBLEMS Type Condition ICD9-CM Code SUO61-AB Code Onset Dates Condition Status SNOMED Code Problem Gastroesophageal reflux disease, esophagitis presence not specified K21.9 Active 420138480 Problem Atopic dermatitis, unspecified type L20.9 Active 00630080 Problem Hypertriglyceridemia E78.1 Active 299472158 ALLERGIES Substance Reaction Event Type Date Status Penicillin V Potassium hives Drug Allergy Mar, Active ENCOUNTERS Encounter Location Date Diagnosis [facility] [id number] [place] [address] Apr, [facility] [id number] [place] [address] Apr, [facility] [id number] [place] [address] Mar, [facility] [id number] [place] [address] Mar, Atopic dermatitis, unspecified type L20.9 [facility] [id number] [place] [address] Mar, [facility] [id number] [place] [address] Mar, Atopic dermatitis, unspecified type L20.9 ; Bronchitis J40 ; Gastroesophageal reflux disease, esophagitis presence not specified K21.9 and Impetigo L01.00 [facility] [id number] [place] [address] Mar, [facility] [address] [place] [address] Mar, Hypertriglyceridemia E78.1 [place] [id number] [place] [address] Feb, Dermatitis L30.9 ; Screening for lipoid disorders Z13.220 ; Other specified personal risk factors, not elsewhere classified Z91.89 ; Encounter for screening for other viral diseases Z11.59 ; Screening for thyroid disorder Z13.29 and Screening for prostate cancer Z12.5 [place] [id number] [place] [address] Feb, [facility] IN [address] [address] Feb, Atopic dermatitis, unspecified type L20.9 [facility] [place] [id number] [place] [address] Jan, Dermatitis due to plants, including poison janette, sumac, and oak L25.5 IMMUNIZATIONS No Known Immunizations SOCIAL HISTORY Never Assessed REASON FOR VISIT rash not improved--tcuppetRn, Rash is back and the itching is unbearable. While on the keflex the symptoms resolved. PLAN OF CARE Activity Details Follow Up prn Reason: VITAL SIGNS Height 70 in 2018-04-14 Weight 225.1 lbs 2018-04-14 Temperature 97.8 degrees Fahrenheit 2018-04-14 Heart Rate 88 bpm 2018-04-14 Respiratory Rate 20 2018-04-14 BMI 32.29 kg/m2 2018-04-14 Blood pressure systolic 128 mmHg 2018-04-14 Blood pressure diastolic 84 mmHg 2018-04-14 MEDICATIONS Medication Instructions Dosage Frequency Start Date End Date Duration Status Cetirizine HCl 10 MG Orally Once a day 1 tablet 24h 90 Active HydrOXYzine Pamoate 50 mg Orally every 6 hrs 1 capsule as needed 6h Feb, 30 day(s) Active Clobetasol Propionate 0.05 % Externally Twice a day 1 application to affected area 12h Mar, Apr, 10 day(s) Active Medrol 4 MG as directed on package Mar, Apr, 6 days Active Pimecrolimus 1 % Externally Twice a day 1 application to affected area 12h 30 Feb, 2018 10 days Active Zantac 150 mg Orally twice a day 1 tablet 12h Mar, 30 day(s) Active ProAir HFA 108 (90 Base) MCG/ACT Inhalation every 6 hrs 2 puffs as needed 6h Mar, 30 days Active RESULTS No Results PROCEDURES No Known procedures INSTRUCTIONS MEDICATIONS ADMINISTERED No Known Medications
--- OUTSIDE RECORDS SUMMARY | 2019-01-15 23:02 | XMS REPORT ---
Author Author LUCRECIA BURGOS [facility] Address [address] [place] [address] Care Team Providers Care Training Specialist Name Role Phone LUCRECIA BURGOS Unavailable PROBLEMS Type Condition ICD9-CM Code XHP66-KK Code Onset Dates Condition Status SNOMED Code Problem Gastroesophageal reflux disease, esophagitis presence not specified K21.9 Active 392068892 Problem Atopic dermatitis, unspecified type L20.9 Active 25069238 Problem Hypertriglyceridemia E78.1 Active 094438690 ALLERGIES No Information ENCOUNTERS Encounter Location Date Diagnosis [place] [address] [address] Mar, [facility] [address] [address] Mar, Atopic dermatitis, unspecified type L20.9 [place] [address] [address] Mar, [place] [address] [address] Mar, Atopic dermatitis, unspecified type L20.9 ; Bronchitis J40 ; Gastroesophageal reflux disease, esophagitis presence not specified K21.9 and Impetigo L01.00 [place] [address] [place] [id number] [place] [address] Mar, [place] [address] [address] Mar, Hypertriglyceridemia E78.1 [place] [address] [address] Feb, Dermatitis L30.9 ; Screening for lipoid disorders Z13.220 ; Other specified personal risk factors, not elsewhere classified Z91.89 ; Encounter for screening for other viral diseases Z11.59 ; Screening for thyroid disorder Z13.29 and Screening for prostate cancer Z12.5 [facility] [address], [place] [address] Feb, [place] [address] [place] [id number] [place] [address] Feb, Atopic dermatitis, unspecified type L20.9 [address] [place] [address] Jan, Dermatitis due to plants, including poison janette, sumac, and oak L25.5 IMMUNIZATIONS No Known Immunizations SOCIAL HISTORY Never Assessed REASON FOR VISIT deferred lab PLAN OF CARE VITAL SIGNS MEDICATIONS Unknown Medications RESULTS No Results PROCEDURES No Known procedures INSTRUCTIONS MEDICATIONS ADMINISTERED No Known Medications
--- OUTSIDE RECORDS SUMMARY | 2019-01-15 23:02 | XMS REPORT ---
Author Author ASHLEY JOSÉ [facility] IN [facility] Address [address] [place] [address] Care Team Providers Care Metal Baler Name Role Phone ASHLEY JOSÉ Unavailable PROBLEMS Type Condition ICD9-CM Code [id number] Code Onset Dates Condition Status SNOMED Code Problem Moderate asthma with exacerbation, unspecified whether persistent J45.901 Active 063183171 Problem Gastroesophageal reflux disease, esophagitis presence not specified K21.9 Active 540705277 Problem Atopic dermatitis, unspecified type L20.9 Active 58756820 Problem Hypertriglyceridemia E78.1 Active 422971633 ALLERGIES Substance Reaction Event Type Date Status Penicillin V Potassium hives Drug Allergy Jul, Active ENCOUNTERS Encounter Location Date Diagnosis [facility] [address] [id number] Jul, Moderate asthma with exacerbation, unspecified whether persistent J45.901 [place] [address] [address] Apr, [facility] [address] [place] [id number] [place] [address] Apr, [facility] [id number] [place] [address] Mar, [facility] [address] [place] [id number] [place] [address] Mar, Atopic dermatitis, unspecified type L20.9 [facility] [address] [address] Mar, [facility] [address] [address] Mar, Atopic dermatitis, unspecified type L20.9 ; Bronchitis J40 ; Gastroesophageal reflux disease, esophagitis presence not specified K21.9 and Impetigo L01.[address] [address] Mar, [place] [address] [place] [id number] [place] [address] Mar, Hypertriglyceridemia E78.[address] [address] Feb, Dermatitis L30.9 ; Screening for lipoid disorders Z13.220 ; Other specified personal risk factors, not elsewhere classified Z91.89 ; Encounter for screening for other viral diseases Z11.59 ; Screening for thyroid disorder Z13.29 and Screening for prostate cancer Z12.[address] [address] Feb, [facility] [address] [address] Feb, Atopic dermatitis, unspecified type L20.9 [facility] IN [address] [address] Jan, Dermatitis due to plants, including poison janette, sumac, and oak L25.5 IMMUNIZATIONS No Known Immunizations SOCIAL HISTORY Never Assessed REASON FOR VISIT Asthma- out of inhaler JStrasserRN PLAN OF CARE Activity Details Follow Up 4 Weeks Reason:Asthma Future/Pending Procedure NEBULIZER TREATMENT VITAL SIGNS Height 70 in 2018-07-29 Weight 238.2 lbs 2018-07-29 Temperature 96.9 degrees Fahrenheit 2018-07-29 Heart Rate 80 bpm 2018-07-29 Respiratory Rate 22 2018-07-29 Oximetry 96 % 2018-07-29 BMI 34.17 kg/m2 2018-07-29 Blood pressure systolic 130 mmHg 2018-07-29 Blood pressure diastolic 90 mmHg 2018-07-29 MEDICATIONS Medication Instructions Dosage Frequency Start Date End Date Duration Status ProAir HFA 108 (90 Base) MCG/ACT Inhalation every 6 hrs 2 puffs as needed 6h 17 Mar, 2018 30 days Active PredniSONE 20 mg Orally Once a day 1 tablet 24h Jul, 5 days Active ProAir HFA 108 (90 Base) MCG/ACT Inhalation every 4 hrs 2 puffs as needed 4h Jul, 7 days Active Spacer/Aero-Holding Chambers 1 by inhalation route every 4-6 hours as needed 1 puff Jul, lifetime Active HydrOXYzine Pamoate 50 mg Orally every 6 hrs 1 capsule as needed 6h 30 Feb, 2018 30 day(s) Active Zantac 150 mg Orally twice a day 1 tablet 12h Mar, 30 day(s) Active Cetirizine HCl 10 MG Orally Once a day 1 tablet 24h 90 Active RESULTS No Results PROCEDURES Procedure Date Ordered Result Body Site NEB/MDI RX INITIAL Jul 29, 2018 INSTRUCTIONS MEDICATIONS ADMINISTERED No Known Medications MEDICAL (GENERAL) HISTORY Type Description Date Surgical History No know Surgical history
--- OUTSIDE RECORDS SUMMARY | 2019-01-15 23:03 | XMS REPORT ---
Author Author DORYS SOTO [facility] Address [address] [place] [address] Care Team Providers Care Video Game Producer Name Role Phone DORYS SOTO Unavailable PROBLEMS Type Condition ICD9-CM Code SAF62-PU Code Onset Dates Condition Status SNOMED Code Problem Gastroesophageal reflux disease, esophagitis presence not specified K21.9 Active 484378331 Problem Atopic dermatitis, unspecified type L20.9 Active 99995616 Problem Hypertriglyceridemia E78.1 Active 433002092 ALLERGIES No Known Allergies ENCOUNTERS Encounter Location Date Diagnosis [place] [address] [address] Mar, [place] [address] [address] Mar, Atopic dermatitis, unspecified type L20.9 [place] [address] [address] Mar, [place] [address] [place] [id number] [place] [address] Mar, Atopic dermatitis, unspecified type L20.9 ; Bronchitis J40 ; Gastroesophageal reflux disease, esophagitis presence not specified K21.9 and Impetigo L01.00 [place] [address] [place] [id number] [place] [address] Mar, [place] [address] [address] Mar, Hypertriglyceridemia E78.1 [place] [address] [place] [id number] [place] [address] Feb, Dermatitis L30.9 ; Screening for lipoid disorders Z13.220 ; Other specified personal risk factors, not elsewhere classified Z91.89 ; Encounter for screening for other viral diseases Z11.59 ; Screening for thyroid disorder Z13.29 and Screening for prostate cancer Z12.5 [facility] [address] [place] [id number] [address] Feb, [facility] [address] [place] [address] [id number] [address] Feb, Atopic dermatitis, unspecified type L20.9 [facility] [address] [place] [id number] [address] Jan, Dermatitis due to plants, including poison janette, sumac, and oak L25.5 IMMUNIZATIONS Vaccine Route Administration Date Status SOLUMEDROL (UP TO 125 MG) IM Intramuscular February 11, 2018 Administered SOCIAL HISTORY Never Assessed REASON FOR VISIT Rash/ Generalized itching started 4 days ago JStrasserRN PLAN OF CARE Activity Details Follow Up 1 Week, prn Reason:if symptoms worsen or not improving VITAL SIGNS Weight 226.0 lbs 2018-02-11 Temperature 97.2 degrees Fahrenheit 2018-02-11 Heart Rate 92 bpm 2018-02-11 Respiratory Rate 20 2018-02-11 Blood pressure systolic 126 mmHg 2018-02-11 Blood pressure diastolic 90 mmHg 2018-02-11 MEDICATIONS Medication Instructions Dosage Frequency Start Date End Date Duration Status Yvonne Allergy 180 MG Orally Once a day 1 tablet as needed 24h Active PredniSONE 20 mg Orally Once a day On Tuesday, take 2 tablets daily for five days 24h Jan, Feb, 05 days Active Betamethasone Dipropionate Aug 0.05 % Externally twice a day 1 application to affected area 12h Jan, Feb, 07 days Active Cetirizine HCl 10 mg Orally Once a day 1 tablet 24h Jan, Feb, 30 day(s) Active RESULTS No Results PROCEDURES Procedure Date Ordered Result Body Site SOLUMEDROL (UP TO 125 MG) February 11, 2018 THER/PROPH/DIAG INJ, SC/IM February 11, 2018 INSTRUCTIONS MEDICATIONS ADMINISTERED No Known Medications
--- OUTSIDE RECORDS SUMMARY | 2019-01-15 23:03 | XMS REPORT ---
Author Author MART BECKER [facility] Address [address] [place] [address] Care Team Providers Care Warehouse Record Clerk Name Role Phone MART BECKER Unavailable PROBLEMS Type Condition ICD9-CM Code [id number] Code Onset Dates Condition Status SNOMED Code Problem Gastroesophageal reflux disease, esophagitis presence not specified K21.9 Active 195455379 Problem Atopic dermatitis, unspecified type L20.9 Active 97641809 Problem Hypertriglyceridemia E78.1 Active 702399975 ALLERGIES No Known Allergies ENCOUNTERS Encounter Location Date Diagnosis [place] [address] [address] Mar, [place] [address] [address] Mar, Atopic dermatitis, unspecified type L20.9 [place] [address] [address] Mar, [place] [address] [place] [id number] [place] [address] Mar, Atopic dermatitis, unspecified type L20.9 ; Bronchitis J40 ; Gastroesophageal reflux disease, esophagitis presence not specified K21.9 and Impetigo L01.00 [place] [address] [place] [id number] [place] [address] Mar, [place] [address] [address] Mar, Hypertriglyceridemia E78.1 [place] [address] [address] Feb, Dermatitis L30.9 ; Screening for lipoid disorders Z13.220 ; Other specified personal risk factors, not elsewhere classified Z91.89 ; Encounter for screening for other viral diseases Z11.59 ; Screening for thyroid disorder Z13.29 and Screening for prostate cancer Z12.5 [facility] [address] [place] [id number] [address] Feb, [facility] [id number] [place] [address] Feb, Atopic dermatitis, unspecified type L20.9 [facility] [id number] [address] Jan, Dermatitis due to plants, including poison janette, sumac, and oak L25.5 IMMUNIZATIONS No Known Immunizations SOCIAL HISTORY Never Assessed REASON FOR VISIT Rash-The patient was here a week ago with the same rash and was given meds that helped some but now the rash is worse than it was in the beginning. Also compla ining of side pain on both sides. He is not sure if it is his kidneys or if it i s from his rash.--DEUCE Castrejon PLAN OF CARE Activity Details Follow Up keep scheduled appt to establish care Reason: VITAL SIGNS Weight 225 lbs 2018-03-01 Temperature 97.9 degrees Fahrenheit 2018-03-01 Heart Rate 96 bpm 2018-03-01 Respiratory Rate 20 2018-03-01 Blood pressure systolic 134 mmHg 2018-03-01 Blood pressure diastolic 88 mmHg 2018-03-01 MEDICATIONS Unknown Medications RESULTS No Results PROCEDURES No Known procedures INSTRUCTIONS MEDICATIONS ADMINISTERED No Known Medications
--- OUTSIDE RECORDS SUMMARY | 2019-01-15 23:04 | XMS REPORT | Continuity of Care Document ---
Author Organization Unknown Address Unknown Allergies Active Description Code Type Severity Reaction Onset Reported/Identified Relationship to Patient Clinical Status Yes No Known Drug Allergies [id number] Drug Allergy Unknown N/A 04/21/2016 Yes Penicillins [id number] Drug Allergy Unknown N/A 08/29/2018 Medications There is no data. Problems Date Dx Coded Attending Type Code Diagnosis Diagnosed By 04/21/2016 MARCELA SAMANIEGO APRN Ot J45.909 UNSPECIFIED ASTHMA, UNCOMPLICATED 04/21/2016 MARCELA SAMANIEGO APRN Ot R21 RASH AND OTHER NONSPECIFIC SKIN ERUPTION 04/23/2016 MARCELA SAMANIEGO APRN Ot J45.909 UNSPECIFIED ASTHMA, UNCOMPLICATED 04/23/2016 MARCELA SAMANIEGO APRN Ot R21 RASH AND OTHER NONSPECIFIC SKIN ERUPTION 05/24/2016 PHAN KIMBLE Ot J45.909 UNSPECIFIED ASTHMA, UNCOMPLICATED 05/24/2016 PHAN KIMBLE Ot L20.9 ATOPIC DERMATITIS, UNSPECIFIED 05/24/2016 PHAN KIMBLE Ot R21 RASH AND OTHER NONSPECIFIC SKIN ERUPTION 05/25/2016 PHAN KIMBLE Ot J45.909 UNSPECIFIED ASTHMA, UNCOMPLICATED 05/25/2016 PHAN KIMBLE Ot L20.9 ATOPIC DERMATITIS, UNSPECIFIED 05/25/2016 PHAN KIMBLE Ot R21 RASH AND OTHER NONSPECIFIC SKIN ERUPTION 06/07/2016 SHEEBA PHILLIPS MD Ot F17.210 NICOTINE DEPENDENCE, CIGARETTES, UNCOMPL 06/07/2016 SHEEBA PHILLIPS MD, Ot R21 RASH AND OTHER NONSPECIFIC SKIN ERUPTION 06/11/2016 SHEEBA PHILLIPS MD Ot F17.210 NICOTINE DEPENDENCE, CIGARETTES, UNCOMPL 06/11/2016 SHEEBA PHILLIPS MD, Ot R21 RASH AND OTHER NONSPECIFIC SKIN ERUPTION 06/25/2016 HONEY WIN DO Ot F17.210 NICOTINE DEPENDENCE, CIGARETTES, UNCOMPL 06/25/2016 HONEY WIN DO Ot L30.0 NUMMULAR DERMATITIS 06/25/2016 AUDELIA LEES HONEY Brown Ot R21 RASH AND OTHER NONSPECIFIC SKIN ERUPTION 06/28/2016 HONEY WIN DO Kevin Ot F17.210 NICOTINE DEPENDENCE, CIGARETTES, UNCOMPL 06/28/2016 AUDELIA LEES HONEY Brown Ot L30.0 NUMMULAR DERMATITIS 06/28/2016 AUDELIA LEESHONEY Kevin Ot R21 RASH AND OTHER NONSPECIFIC SKIN ERUPTION 07/07/2016 HONEY WIN DO eKvin Ot F17.210 NICOTINE DEPENDENCE, CIGARETTES, UNCOMPL 07/07/2016 AUDELIA LEES HONEY Brown Ot L30.0 NUMMULAR DERMATITIS 07/07/2016 AUDELIA LEES HONEY Brown Ot R21 RASH AND OTHER NONSPECIFIC SKIN ERUPTION 07/08/2016 AUDELIAHONEY DODD DO Kevin Ot F17.210 NICOTINE DEPENDENCE, CIGARETTES, UNCOMPL 07/08/2016 AUDELIA LEES HONEY Brown Ot L30.0 NUMMULAR DERMATITIS 07/08/2016 AUDELIA LEESHONEY Kevin Ot R21 RASH AND OTHER NONSPECIFIC SKIN ERUPTION 08/12/2016 MARANDA STANLEY MD (U) Ot Z02.71 ENCOUNTER FOR DISABILITY DETERMINATION 08/13/2016 SALLYTANMAY [employer] SCREENER AND BLENDER Ot F17.210 NICOTINE DEPENDENCE, CIGARETTES, UNCOMPL 08/13/2016 SALLY, TANMAY SCREENER AND BLENDER Ot L30.8 OTHER SPECIFIED DERMATITIS 08/13/2016 SALLY, TANMAY SCREENER AND BLENDER Ot R21 RASH AND OTHER NONSPECIFIC SKIN ERUPTION 08/17/2016 MARANDA STANLEY MD (U) Ot Z02.71 ENCOUNTER FOR DISABILITY DETERMINATION 08/24/2016 MARANDA STANLEY MD (U) Ot Z02.71 ENCOUNTER FOR DISABILITY DETERMINATION 08/24/2016 SALLYTANMAY SCREENER AND BLENDER Ot F17.210 NICOTINE DEPENDENCE, CIGARETTES, UNCOMPL 08/24/2016 SALLY, TANMAY SCREENER AND BLENDER Ot L30.8 OTHER SPECIFIED DERMATITIS 08/24/2016 SALLY, TANMAY SCREENER AND BLENDER Ot R21 RASH AND OTHER NONSPECIFIC SKIN ERUPTION 08/24/2016 JULIO ANDUJAR, KATY Lemus Ot F17.210 NICOTINE DEPENDENCE, CIGARETTES, UNCOMPL 08/24/2016 JULIO ANDUJAR, KATY Lemus Ot J82 PULMONARY EOSINOPHILIA, 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 08/24/2016 JULIO ANDUJAR, KATY Lemus Ot L30.9 DERMATITIS, UNSPECIFIED 08/24/2016 KATY KIM MD Ot R21 RASH AND OTHER NONSPECIFIC SKIN ERUPTION 08/25/2016 KATY KIM MD Ot F17.210 NICOTINE DEPENDENCE, CIGARETTES, UNCOMPL 08/25/2016 KATY KIM MD Ot 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 PULMONARY EOSINOPHILIA, 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 08/25/2016 KATY KIM MD Ot L30.9 DERMATITIS, UNSPECIFIED 08/25/2016 KATY KIM MD Ot R21 RASH AND OTHER NONSPECIFIC SKIN ERUPTION 08/28/2016 KATY KIM MD Ot F17.210 NICOTINE DEPENDENCE, CIGARETTES, UNCOMPL 08/28/2016 KATY KIM MD Ot 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 PULMONARY EOSINOPHILIA, 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 08/28/2016 KATY KIM MD Ot L30.9 DERMATITIS, UNSPECIFIED 08/28/2016 KATY KIM MD Ot R21 RASH AND OTHER NONSPECIFIC SKIN ERUPTION 08/30/2016 KATY KIM MD Ot F17.210 NICOTINE DEPENDENCE, CIGARETTES, UNCOMPL 08/30/2016 KATY KIM MD Ot 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 PULMONARY EOSINOPHILIA, 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 08/30/2016 KATY KIM MD Ot L30.9 DERMATITIS, UNSPECIFIED 08/30/2016 KATY KIM MD Ot R21 RASH AND OTHER NONSPECIFIC SKIN ERUPTION 03/02/2018 LASHON MITCHELL MD Ot J45.909 UNSPECIFIED ASTHMA, UNCOMPLICATED 03/02/2018 LASHON MITCHELL MD Ot L23.9 ALLERGIC CONTACT DERMATITIS, UNSPECIFIED 03/02/2018 LASHON MITCHELL MD Ot L29.9 PRURITUS, UNSPECIFIED 03/02/2018 LASHON MITCHELL MD Ot 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 03/02/2018 LASHON MITCHELL MD Ot Z79.52 LONGTERM (CURRENT) USE OF SYSTEMIC STER 03/02/2018 LASHON MITCHELL MD Ot Z87.891 PERSONAL HISTORY OF NICOTINE DEPENDENCE 03/02/2018 LASHON MITCHELL MD Ot Z88.0 ALLERGY STATUS TO PENICILLIN 03/06/2018 LASHON MITCHELL MD J Ot J45.909 UNSPECIFIED ASTHMA, UNCOMPLICATED 03/06/2018 KRYSTA MITCHELL MDUS J Ot L23.9 ALLERGIC CONTACT DERMATITIS, UNSPECIFIED 03/06/2018 KRYSTA MICTHELL MDUS J Ot L29.9 PRURITUS, UNSPECIFIED 03/06/2018 KRYSTA MITCHELL MDUS J Ot Z79.51 LONGTERM (CURRENT) USE OF INHALED STERO 03/06/2018 KRYSTA MITCHELL MDUS J Ot Z79.52 LONGTERM (CURRENT) USE OF SYSTEMIC STER 03/06/2018 KRYSTA MITCHELL MDUS J Ot Z87.891 PERSONAL HISTORY OF NICOTINE DEPENDENCE 03/06/2018 KRYSAT MITCHELL MDUS J Ot Z88.0 ALLERGY STATUS TO PENICILLIN 08/29/2018 LASHON MITCHELL MD J Ot F41.9 ANXIETY DISORDER, UNSPECIFIED 08/29/2018 LASHON MITCHELL MD J Ot J45.901 UNSPECIFIED ASTHMA WITH (ACUTE) EXACERBA 08/29/2018 KRYSTA MITCHELL MDUS J Ot R06.02 SHORTNESS OF BREATH 08/29/2018 LASHON MITCHELL MD J Ot 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 08/29/2018 KRYSTA MITCHELL MDUS J Ot Z79.52 LONGTERM (CURRENT) USE OF SYSTEMIC STER 08/29/2018 LASHON MITCHELL MD J Ot Z87.891 PERSONAL HISTORY OF NICOTINE DEPENDENCE 08/29/2018 KRYSTA MITCHELL MDUS J Ot Z88.0 ALLERGY STATUS TO PENICILLIN 08/31/2018 LASHON MITCHELL MD J Ot F41.9 ANXIETY DISORDER, UNSPECIFIED 08/31/2018 LASHON MITCHELL MD J Ot J45.901 UNSPECIFIED ASTHMA WITH (ACUTE) EXACERBA 08/31/2018 KRYSTA MITCHELL MDUS J Ot R06.02 SHORTNESS OF BREATH 08/31/2018 KRYSTA MITCHELL MDUS J Ot Z79.51 LONGTERM (CURRENT) USE OF INHALED STERO 08/31/2018 KRYSTA MITCHELL MDUS J Ot 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 STER 08/31/2018 LASHON MITCHELL MD J Ot Z87.891 PERSONAL HISTORY OF NICOTINE DEPENDENCE 08/31/2018 LASHON MITCHELL MD J Ot Z88.0 ALLERGY STATUS TO PENICILLIN 09/04/2018 LASHON MITCHELL MD J Ot F41.9 ANXIETY DISORDER, UNSPECIFIED 09/04/2018 LASHON MITCHELL MD, Ot J45.901 UNSPECIFIED ASTHMA WITH (ACUTE) EXACERBA 09/04/2018 LASHON MITCHELL MD Ot R06.02 SHORTNESS OF BREATH 09/04/2018 LASHON MITCHELL MD, Ot 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 Results Test Result Range Complete blood count (CBC) with automated white blood cell (WBC) differential - 06/25/16 16:15 Blood leukocytes automated count (number/volume) 12.1 10*3/uL 4.3-11.0 Blood erythrocytes automated count (number/volume) 5.22 10*6/uL 4.35-5.85 Venous blood hemoglobin measurement (mass/volume) 15.7 g/dL 13.3-17.7 Blood hematocrit (volume fraction) 47 % 40-54 Automated erythrocyte mean corpuscular volume 90 [foz_us] 80-99 Automated erythrocyte mean corpuscular hemoglobin (mass per erythrocyte) 30 pg 25-34 Automated erythrocyte mean corpuscular hemoglobin concentration measurement (mass/volume) 33 g/dL 32-36 Automated erythrocyte distribution width ratio 13.8 % 10.0- 14.5 Automated blood platelet count (count/volume) 307 10*3/uL 130-400 Automated blood platelet mean volume measurement 9.4 [foz_us] 7.4-10.4 Automated blood neutrophils/100 leukocytes 50 % 42-75 Automated blood lymphocytes/100 leukocytes 18 % 12-44 Blood monocytes/100 leukocytes 8 % 0-12 Automated blood eosinophils/100 leukocytes 24 % 0-10 Automated blood basophils/100 leukocytes 0 % 0-10 Blood neutrophils automated count (number/volume) 6.1 10*3 1.8-7.8 Blood lymphocytes automated count (number/volume) 2.2 10*3 1.0-4.0 Blood monocytes automated count (number/volume) 0.9 10*3 0.0- 1.0 Automated eosinophil count 2.9 10*3/uL 0.0-0.3 Automated blood basophil count (count/volume) 0.0 10*3/uL 0.0-0.1 Blood manual differential performed detection - 06/25/16 16:15 Blood monocytes/100 leukocytes 8 % NRG Manual blood segmented neutrophils/100 leukocytes 41 % NRG Blood band neutrophils/100 leukocytes 0 % NRG Manual blood lymphocytes/100 leukocytes 23 % NRG Manual eosinophils/100 leukocytes in nose 28 % NRG Manual blood basophils/100 leukocytes 0 % NRG Blood erythrocyte morphology finding identification NORMAL NRG Erythrocyte sedimentation rate by westergren method - 06/25/16 16:15 Erythrocyte sedimentation rate by westergren method 1 mm 0- 30 Comprehensive metabolic panel - 06/25/16 16:15 Serum or plasma sodium measurement (moles/volume) 140 mmol/L 135-145 Serum or plasma potassium measurement (moles/volume) 4.5 mmol/L 3.6-5.0 Serum or plasma chloride measurement (moles/volume) 103 mmol/L 98-107 Carbon dioxide 27 mmol/L 21-32 Serum or plasma anion gap determination (moles/volume) 10 mmol/L 5-14 Serum or plasma urea nitrogen measurement (mass/volume) 15 mg/dL 7-18 Serum or plasma creatinine measurement (mass/volume) 0.93 mg/dL 0.60-1.30 Serum or plasma urea nitrogen/creatinine mass ratio 16 NRG Serum or plasma creatinine measurement with calculation of estimated glomerular filtration rate > NRG Serum or plasma glucose measurement (mass/volume) 88 mg/dL 70-105 Serum or plasma calcium measurement (mass/volume) 8.8 mg/dL 8.5-10.1 Serum or plasma total bilirubin measurement (mass/volume) 0.9 mg/dL 0.1-1.0 Serum or plasma alkaline phosphatase measurement (enzymatic activity/volume) 62 U/L 40-136 Serum or plasma aspartate aminotransferase measurement (enzymatic activity/volume) 42 U/L 5-34 Serum or plasma alanine aminotransferase measurement (enzymatic activity/volume) 42 U/L 0-55 Serum or plasma protein measurement (mass/volume) 6.7 g/dL 6.4-8.2 Serum or plasma albumin measurement (mass/volume) 3.7 g/dL 3.2-4.5 Complete blood count (CBC) with automated white blood cell (WBC) differential - 08/11/16 15:07 Blood leukocytes automated count (number/volume) 10.3 10*3/uL 4.3-11.0 Blood erythrocytes automated count (number/volume) 4.60 10*6/uL 4.35-5.85 Venous blood hemoglobin measurement (mass/volume) 13.7 g/dL 13.3-17.7 Blood hematocrit (volume fraction) 42 % 40-54 Automated erythrocyte mean corpuscular volume 91 [foz_us] 80-99 Automated erythrocyte mean corpuscular hemoglobin (mass per erythrocyte) 30 pg 25-34 Automated erythrocyte mean corpuscular hemoglobin concentration measurement (mass/volume) 33 g/dL 32-36 Automated erythrocyte distribution width ratio 13.6 % 10.0- 14.5 Automated blood platelet count (count/volume) 300 10*3/uL 130-400 Automated blood platelet mean volume measurement 9.3 [foz_us] 7.4-10.4 Automated blood neutrophils/100 leukocytes 59 % 42-75 Automated blood lymphocytes/100 leukocytes 14 % 12-44 Blood monocytes/100 leukocytes 10 % 0-12 Automated blood eosinophils/100 leukocytes 18 % 0-10 Automated blood basophils/100 leukocytes 0 % 0-10 Blood neutrophils automated count (number/volume) 6.0 10*3 1.8-7.8 Blood lymphocytes automated count (number/volume) 1.5 10*3 1.0-4.0 Blood monocytes automated count (number/volume) 1.0 10*3 0.0- 1.0 Automated eosinophil count 1.8 10*3/uL 0.0-0.3 Automated blood basophil count (count/volume) 0.0 10*3/uL 0.0-0.1 Comprehensive metabolic panel - 08/11/16 15:07 Serum or plasma sodium measurement (moles/volume) 137 mmol/L 135-145 Serum or plasma potassium measurement (moles/volume) 3.7 mmol/L 3.6-5.0 Serum or plasma chloride measurement (moles/volume) 104 mmol/L 98-107 Carbon dioxide 24 mmol/L 21-32 Serum or plasma anion gap determination (moles/volume) 9 mmol/L 5-14 Serum or plasma urea nitrogen measurement (mass/volume) 13 mg/dL 7-18 Serum or plasma creatinine measurement (mass/volume) 0.83 mg/dL 0.60-1.30 Serum or plasma urea nitrogen/creatinine mass ratio 16 NRG Serum or plasma creatinine measurement with calculation of estimated glomerular filtration rate > NRG Serum or plasma glucose measurement (mass/volume) 89 mg/dL 70-105 Serum or plasma calcium measurement (mass/volume) 8.6 mg/dL 8.5-10.1 Serum or plasma total bilirubin measurement (mass/volume) 0.6 mg/dL 0.1-1.0 Serum or plasma alkaline phosphatase measurement (enzymatic activity/volume) 57 U/L 40-136 Serum or plasma aspartate aminotransferase measurement (enzymatic activity/volume) 34 U/L 5-34 Serum or plasma alanine aminotransferase measurement (enzymatic activity/volume) 27 U/L 0-55 Serum or plasma protein measurement (mass/volume) 6.3 g/dL 6.4-8.2 Serum or plasma albumin measurement (mass/volume) 3.8 g/dL 3.2-4.5 Blood manual differential performed detection - 08/11/16 15:07 Blood monocytes/100 leukocytes 5 % NR Manual blood segmented neutrophils/100 leukocytes 62 % NRG Blood band neutrophils/100 leukocytes 3 % NRG Manual blood lymphocytes/100 leukocytes 14 % NRG Manual eosinophils/100 leukocytes in nose 15 % NRG Manual blood basophils/100 leukocytes 1 % NRG Blood erythrocyte morphology finding identification NORMAL NR Complete blood count (CBC) with automated white blood cell (WBC) differential - 08/24/16 00:25 Blood leukocytes automated count (number/volume) 15.5 10*3/uL 4.3-11.0 Blood erythrocytes automated count (number/volume) 4.98 10*6/uL 4.35-5.85 Venous blood hemoglobin measurement (mass/volume) 14.7 g/dL 13.3-17.7 Blood hematocrit (volume fraction) 46 % 40-54 Automated erythrocyte mean corpuscular volume 91 [foz_us] 80-99 Automated erythrocyte mean corpuscular hemoglobin (mass per erythrocyte) 30 pg 25-34 Automated erythrocyte mean corpuscular hemoglobin concentration measurement (mass/volume) 32 g/dL 32-36 Automated erythrocyte distribution width ratio 13.6 % 10.0- 14.5 Automated blood platelet count (count/volume) 267 10*3/uL 130-400 Automated blood platelet mean volume measurement 9.6 [foz_us] 7.4-10.4 Automated blood neutrophils/100 leukocytes 60 % 42-75 Automated blood lymphocytes/100 leukocytes 15 % 12-44 Blood monocytes/100 leukocytes 7 % 0-12 Automated blood eosinophils/100 leukocytes 18 % 0-10 Automated blood basophils/100 leukocytes 0 % 0-10 Blood neutrophils automated count (number/volume) 9.3 10*3 1.8-7.8 Blood lymphocytes automated count (number/volume) 2.3 10*3 1.0-4.0 Blood monocytes automated count (number/volume) 1.1 10*3 0.0- 1.0 Automated eosinophil count 2.8 10*3/uL 0.0-0.3 Automated blood basophil count (count/volume) 0.0 10*3/uL 0.0-0.1 Blood manual differential performed detection - 08/24/16 00:25 Blood monocytes/100 leukocytes 8 % NRG Manual blood segmented neutrophils/100 leukocytes 61 % NRG Blood band neutrophils/100 leukocytes 0 % NRG Manual blood lymphocytes/100 leukocytes 11 % NRG Manual eosinophils/100 leukocytes in nose 20 % NRG Manual blood basophils/100 leukocytes 0 % NRG Blood erythrocyte morphology finding identification NORMAL [facility] Comprehensive metabolic panel - 08/24/16 00:25 Serum or plasma sodium measurement (moles/volume) 138 mmol/L 135-145 Serum or plasma potassium measurement (moles/volume) 4.1 mmol/L 3.6-5.0 Serum or plasma chloride measurement (moles/volume) 102 mmol/L 98-107 Carbon dioxide 21 mmol/L 21-32 Serum or plasma anion gap determination (moles/volume) 15 mmol/L 5-14 Serum or plasma urea nitrogen measurement (mass/volume) 14 mg/dL 7-18 Serum or plasma creatinine measurement (mass/volume) 1.01 mg/dL 0.60-1.30 Serum or plasma urea nitrogen/creatinine mass ratio 14 NRG Serum or plasma creatinine measurement with calculation of estimated glomerular filtration rate > NRG Serum or plasma glucose measurement (mass/volume) 111 mg/dL 70-105 Serum or plasma calcium measurement (mass/volume) 9.0 mg/dL 8.5-10.1 Serum or plasma total bilirubin measurement (mass/volume) 1.2 mg/dL 0.1-1.0 Serum or plasma alkaline phosphatase measurement (enzymatic activity/volume) 67 U/L 40-136 Serum or plasma aspartate aminotransferase measurement (enzymatic activity/volume) 36 U/L 5-34 Serum or plasma alanine aminotransferase measurement (enzymatic activity/volume) 40 U/L 0-55 Serum or plasma protein measurement (mass/volume) 7.0 g/dL 6.4-8.2 Serum or plasma albumin measurement (mass/volume) 3.9 g/dL 3.2-4.5 Serum or plasma thyrotropin measurement by detection limit <=0.05 miu/l (units/volume) - 08/24/16 00:25 Serum or plasma thyrotropin measurement by detection limit <=0.05 miu/l (units/volume) 1.39 u[iU]/mL 0.35-4.94 Erythrocyte sedimentation rate by westergren method - 08/24/16 00:25 Erythrocyte sedimentation rate by westergren method 9 mm 0- 30 Serum or plasma C reactive protein measurement (mass/volume) - 08/24/16 00:25 Serum or plasma C reactive protein measurement (mass/volume) 3.69 mg/dL 0.00-0.50 Complete urinalysis with reflex to culture - 08/24/16 01:01 Urine color determination YELLOW NRG Urine clarity determination CLEAR NRG Urine pH measurement by test strip 7 5-9 Specific gravity of urine by test strip 1.010 1.016-1.022 Urine protein assay by test strip, semi-quantitative 2+ NEGATIVE Urine glucose detection by automated test strip NEGATIVE NEGATIVE Erythrocytes detection in urine sediment by light microscopy 2+ NEGATIVE Urine ketones detection by automated test strip NEGATIVE NEGATIVE Urine nitrite detection by test strip NEGATIVE NEGATIVE Urine total bilirubin detection by test strip NEGATIVE NEGATIVE Urine urobilinogen measurement by automated test strip (mass/volume) 1 mg/dL NORMAL Urine leukocyte esterase detection by dipstick 1+ NEGATIVE Automated urine sediment erythrocyte count by microscopy (number/high power field) [HPF] NRG Automated urine sediment leukocyte count by microscopy (number/high power field) [HPF] NRG Bacteria detection in urine sediment by light microscopy TRACE NRG Crystals detection in urine sediment by light microscopy NONE NRG Casts detection in urine sediment by light microscopy NONE NRG Mucus detection in urine sediment by light microscopy NEGATIVE NRG Complete urinalysis with reflex to culture YES NRG Bacterial urine culture - 08/24/16 01:01 Bacterial urine culture [id number] NRG COLONY COUNT <10,000 NRG FTX;REPORTABLE SEE COMMENTS NRG TSH - 03/13/18 14:37 TSH 1.34 mIU/L 0.40-4.50 Complete blood count (CBC) with automated white blood cell (WBC) differential - 08/29/18 16:58 Blood leukocytes automated count (number/volume) 10.5 10*3/uL 4.3-11.0 Blood erythrocytes automated count (number/volume) 5.27 10*6/uL 4.35-5.85 Venous blood hemoglobin measurement (mass/volume) 15.2 g/dL 13.3-17.7 Blood hematocrit (volume fraction) 46 % 40-54 Automated erythrocyte mean corpuscular volume 88 [foz_us] 80-99 Automated erythrocyte mean corpuscular hemoglobin (mass per erythrocyte) 29 pg 25-34 Automated erythrocyte mean corpuscular hemoglobin concentration measurement (mass/volume) 33 g/dL 32-36 Automated erythrocyte distribution width ratio 12.7 % 10.0- 14.5 Automated blood platelet count (count/volume) 297 10*3/uL 130-400 Automated blood platelet mean volume measurement 9.7 [foz_us] 7.4-10.4 Automated blood neutrophils/100 leukocytes 49 % 42-75 Automated blood lymphocytes/100 leukocytes 32 % 12-44 Blood monocytes/100 leukocytes 9 % 0-12 Automated blood eosinophils/100 leukocytes 9 % 0-10 Automated blood basophils/100 leukocytes 1 % 0-10 Blood neutrophils automated count (number/volume) 5.2 10*3 1.8-7.8 Blood lymphocytes automated count (number/volume) 3.3 10*3 1.0-4.0 Blood monocytes automated count (number/volume) 0.9 10*3 0.0- 1.0 Automated eosinophil count 1.0 10*3/uL 0.0-0.3 Automated blood basophil count (count/volume) 0.1 10*3/uL 0.0-0.1 Comprehensive metabolic panel - 08/29/18 16:58 Serum or plasma sodium measurement (moles/volume) 141 mmol/L 135-145 Serum or plasma potassium measurement (moles/volume) 3.8 mmol/L 3.6-5.0 Serum or plasma chloride measurement (moles/volume) 102 mmol/L 98-107 Carbon dioxide 27 mmol/L 21-32 Serum or plasma anion gap determination (moles/volume) 12 mmol/L 5-14 Serum or plasma urea nitrogen measurement (mass/volume) 17 mg/dL 7-18 Serum or plasma creatinine measurement (mass/volume) 0.97 mg/dL 0.60-1.30 Serum or plasma urea nitrogen/creatinine mass ratio 18 NRG Serum or plasma creatinine measurement with calculation of estimated glomerular filtration rate > NRG Serum or plasma glucose measurement (mass/volume) 74 mg/dL 70-105 Serum or plasma calcium measurement (mass/volume) 9.7 mg/dL 8.5-10.1 Serum or plasma total bilirubin measurement (mass/volume) 0.6 mg/dL 0.1-1.0 Serum or plasma alkaline phosphatase measurement (enzymatic activity/volume) 74 U/L 40-136 Serum or plasma aspartate aminotransferase measurement (enzymatic activity/volume) 55 U/L 5-34 Serum or plasma alanine aminotransferase measurement (enzymatic activity/volume) 58 U/L 0-55 Serum or plasma protein measurement (mass/volume) 7.8 g/dL 6.4-8.2 Serum or plasma albumin measurement (mass/volume) 4.3 g/dL 3.2-4.5 CALCIUM CORRECTED 9.5 mg/dL 8.5-10.1 Serum or plasma C reactive protein measurement (mass/volume) - 08/29/18 16:58 Serum or plasma C reactive protein measurement (mass/volume) 0.74 mg/dL 0.00-0.50 Influenza virus A and B antigen detection - 08/29/18 17:41 FLU RESULT NEGATIVE FOR INFLUENZA A AND B ANTIGENS BY [facility] Complete blood count (CBC) with automated white blood cell (WBC) differential - 01/15/19 17:10 Blood leukocytes automated count (number/volume) 9.2 10*3/uL 4.3-11.0 Blood erythrocytes automated count (number/volume) 5.11 10*6/uL 4.35-5.85 Venous blood hemoglobin measurement (mass/volume) 14.9 g/dL 13.3-17.7 Blood hematocrit (volume fraction) 45 % 40-54 Automated erythrocyte mean corpuscular volume 87 [foz_us] 80-99 Automated erythrocyte mean corpuscular hemoglobin (mass per erythrocyte) 29 pg 25-34 Automated erythrocyte mean corpuscular hemoglobin concentration measurement (mass/volume) 33 g/dL 32-36 Automated erythrocyte distribution width ratio 12.6 % 10.0- 14.5 Automated blood platelet count (count/volume) 294 10*3/uL 130-400 Automated blood platelet mean volume measurement 9.2 [foz_us] 7.4-10.4 Automated blood neutrophils/100 leukocytes 68 % 42-75 Automated blood lymphocytes/100 leukocytes 18 % 12-44 Blood monocytes/100 leukocytes 9 % 0-12 Automated blood eosinophils/100 leukocytes 5 % 0-10 Automated blood basophils/100 leukocytes 0 % 0-10 Blood neutrophils automated count (number/volume) 6.2 10*3 1.8-7.8 Blood lymphocytes automated count (number/volume) 1.7 10*3 1.0-4.0 Blood monocytes automated count (number/volume) 0.8 10*3 0.0- 1.0 Automated eosinophil count 0.4 10*3/uL 0.0-0.3 Automated blood basophil count (count/volume) 0.0 10*3/uL 0.0-0.1 Comprehensive metabolic panel - 01/15/19 17:10 Serum or plasma sodium measurement (moles/volume) 139 mmol/L 135-145 Serum or plasma potassium measurement (moles/volume) 3.4 mmol/L 3.6-5.0 Serum or plasma chloride measurement (moles/volume) 102 mmol/L 98-107 Carbon dioxide 29 mmol/L 21-32 Serum or plasma anion gap determination (moles/volume) 8 mmol/L 5-14 Serum or plasma urea nitrogen measurement (mass/volume) 12 mg/dL 7-18 Serum or plasma creatinine measurement (mass/volume) 1.01 mg/dL 0.60-1.30 Serum or plasma urea nitrogen/creatinine mass ratio 12 NRG Serum or plasma creatinine measurement with calculation of estimated glomerular filtration rate > NRG Serum or plasma glucose measurement (mass/volume) 88 mg/dL 70-105 Serum or plasma calcium measurement (mass/volume) 9.6 mg/dL 8.5-10.1 Serum or plasma total bilirubin measurement (mass/volume) 0.6 mg/dL 0.1-1.0 Serum or plasma alkaline phosphatase measurement (enzymatic activity/volume) 71 U/L 40-136 Serum or plasma aspartate aminotransferase measurement (enzymatic activity/volume) 22 U/L 5-34 Serum or plasma alanine aminotransferase measurement (enzymatic activity/volume) 35 U/L 0-55 Serum or plasma protein measurement (mass/volume) 7.2 g/dL 6.4-8.2 Serum or plasma albumin measurement (mass/volume) 4.3 g/dL 3.2-4.5 CALCIUM CORRECTED 9.4 mg/dL 8.5-10.1 Serum or plasma C reactive protein measurement (mass/volume) - 01/15/19 17:10 Serum or plasma C reactive protein measurement (mass/volume) 3.58 mg/dL 0.00-0.50 Encounters ACCT No. Visit Date/Time Discharge Status Pt. Type Provider Facility Loc./Unit Complaint [id number] 12/27/2018 14:00:00 12/27/2018 23:59:59 [facility] Outpatient LUCRECIA BURGOS [facility] [id number] 03/13/2018 13:00:00 Document Registration [id number] 01/15/2019 15:23:00 01/15/2019 18:28:00 DIS Emergency KATY KIM MD [facility] ER L LEG SWELLING [id number] 08/29/2018 16:53:00 08/29/2018 19:07:00 DIS Emergency LASHON MITCHELL MD [facility] ER ASTHMA ATTACK [id number] 03/02/2018 04:47:00 03/02/2018 05:48:00 DIS Emergency LASHON MITCHELL MD [facility] ER POSS POISON JENI OR [place],RASH [id number] 08/24/2016 00:17:00 08/24/2016 02:55:00 DIS Emergency KATY KIM MD [facility] ER ARMS,LEGS NECK SWELLING [id number] 08/11/2016 11:55:00 08/11/2016 23:59:59 C[facility] Outpatient MARANDA STANLEY MD (DDU) [facility] RAD TESTICULAR TORISON DUE TO FALL/ACCIDENT [id number] 08/11/2016 13:09:00 08/11/2016 16:40:00 DIS Emergency TANMAY ZAVALA [facility] ER ARMS SWELLING/REDNESS POSS ALLERGIC REACTION [id number] 06/25/2016 14:36:00 06/25/2016 20:41:00 DIS Emergency HONEY WIN DO [facility] ER SOA RASH [id number] 06/07/2016 16:15:00 06/07/2016 18:20:00 DIS Emergency SHEEBA PHILLIPS MD [facility] ER RASH/DIFF BREATHING [id number] 05/24/2016 17:10:00 05/24/2016 18:58:00 DIS Emergency PHAN KIMBLE [facility] ER POSSIBLE ALLERGIC REACTION [id number] 04/21/2016 18:02:00 04/21/2016 19:12:00 DIS Emergency MARCELA SAMANIEGO APRN [facility] ER RASH;TROUBLE BREATHING
== END 2019-01-15 18:28 | disposition home or self-care (01) ==
LOC: EDUNIT# 15:21 → ER 15:23
DX: L03.116 Cellulitis of left lower limb (principal); J45.909 Unspecified asthma, uncomplicated; Z88.0 Allergy status to penicillin; Z79.52 Long term (current) use of systemic steroids; Z87.891 Personal history of nicotine dependence
CPT/HCPCS: 36415; 80053; 85025; 86141; 96365

== ENCOUNTER 2019-09-30 10:08 | Emergency (ER) | payer MEDICAID ==
[~2019-09-30] VITALS: Ht 177.8 cm; Wt 99.4 kg
[~2019-09-30 10:08] MED LIST changes: +CLIN300C11 PO; -MOME45CR19 TP; +MOME45CR3 TP
[2019-09-30 10:40] LABS: BASOPHILS # (AUTO) 0.1 10^3/uL (0.0-0.1); BASOPHILS % (AUTO) 0 % (0-10); EOSINOPHILS # (AUTO) 0.1 10^3/uL (0.0-0.3); EOSINOPHILS % (AUTO) 1 % (0-10); HEMATOCRIT 44 % (40-54); HEMOGLOBIN 14.6 G/DL (13.3-17.7); LYMPHOCYTES % (AUTO) 11 % (12-44); MEAN CORPUSCULAR HEMOGLOBIN 29 PG (25-34); MEAN CORPUSCULAR HGB CONC 33 G/DL (32-36); MEAN CORPUSCULAR VOLUME 87 FL (80-99); MEAN PLATELET VOLUME 9.2 FL (7.4-10.4); MONOCYTES # (AUTO) 2.1 X 10^3 (0.0-1.0); MONOCYTES % (AUTO) 11 % (0-12); NEUTROPHILS # (AUTO) 14.2 X 10^3 (1.8-7.8); NEUTROPHILS % (AUTO) 77 % (42-75); PLATELET COUNT 330 10^3/uL (130-400); RED CELL DISTRIBUTION WIDTH 12.9 % (10.0-14.5); WHITE BLOOD COUNT 18.5 10^3/uL (4.3-11.0)
[2019-09-30 10:44] LABS: CLARITY,URINE CLOUDY; COLOR,URINE AMBER; GLUCOSE, URINE (UA) NEGATIVE (NEGATIVE); KETONES,URINE TRACE (NEGATIVE); LEUKOCYTE ESTERASE ,URINE TRACE (NEGATIVE); NITRITE,URINE NEGATIVE (NEGATIVE); PROTEIN,URINE 2+ (NEGATIVE)
[2019-09-30] MEDS ORDERED: ONDANSETRON 4 MG/2 ML (SDV) Z0FRAN IVP ONE (10:45)
[2019-09-30 10:53] LABS: BACTERIA,URINE NEGATIVE /HPF; BILIRUBIN,URINE 2+ (NEGATIVE); SQUAMOUS EPITHELIAL CELL,UR RARE /HPF; WBC,URINE 25-50 /HPF
[2019-09-30 10:58] LABS: ALANINE AMINOTRANSFERASE 32 U/L (0-55); ALBUMIN 3.9 GM/DL (3.2-4.5); ALKALINE PHOSPHATASE 112 U/L (40-136); BILIRUBIN,TOTAL 0.8 MG/DL (0.1-1.0); BUN/CREATININE RATIO 11; CALCIUM 9.4 MG/DL (8.5-10.1); CARBON DIOXIDE 27 MMOL/L (21-32); CHLORIDE 95 MMOL/L (98-107); CREATINE KINASE 221 U/L (30-200); CREATININE SERUM 1.21 MG/DL (0.60-1.30); GFR ESTIMATED > 60; GLUCOSE 102 MG/DL (70-105); POTASSIUM 3.7 MMOL/L (3.6-5.0); SODIUM 133 MMOL/L (135-145); TOTAL PROTEIN 7.8 GM/DL (6.4-8.2)
[2019-09-30 10:59] LABS: BAND NEUTROPHILS 6 %; BASOPHILS % (MANUAL) 1 %; EOSINOPHILS % (MANUAL) 0 %; LYMPHOCYTES % (MANUAL) 3 %; MONOCYTES % (MANUAL) 5 %; NEUTROPHILS % (MANUAL) 75 %; RBC MORPH NORMAL; REACTIVE LYMPHOCYTES 10 %
[2019-09-30] MEDS ORDERED: KETOROLAC 30 MG/ML VIAL IVP ONE (12:00)
--- NOTE | 2019-09-30 12:41 | Diagnostic Imaging Report ---
PROCEDURE: CT urinary tract, rule out kidney stone. TECHNIQUE: Multiple contiguous axial images were obtained through the abdomen and pelvis without the use of intravenous contrast. Auto Exposure Controls were utilized during the CT exam to meet ALARA standards for radiation dose reduction. INDICATION: Bladder pain with nausea. FINDINGS: The kidneys show no calculi. No hydronephrosis. There is a cyst off the lower pole of the right kidney measuring 1.5 cm. Ureters are not dilated. Bladder decompressed. There is a questionable mild thickening of bladder wall though this may be secondary to decompressed state. However there is some adjacent mesenteric edema about the bladder. The prostate is rather enlarged. The colon shows normal stool and gas pattern. There is no evidence of diverticulitis. No evidence of obstructive process. Small bowel is not dilated. The appendix is not visualized. There is a 1.6 cm hypoechoic cystic lesion left lobe of the liver. Liver otherwise appears normal. The gallbladder and bile ducts are not dilated. The pancreas is normal. The spleen is normal. The adrenal glands are normal. No evidence of aortic aneurysm or dissection with minimal atherosclerotic disease. No free air or free fluid. No blastic or lytic bony changes. IMPRESSION: 1. The bladder is decompressed. Question of some bladder wall thickening with adjacent mesenteric fat edema which could be secondary to cystitis. Clinical correlation. 2. No evidence of renal or ureteral calculi. No bladder stones. 3. No evidence of diverticulitis or acute inflammatory bowel changes. 4. The cystic lesion off the lower pole of the right kidney measuring 1.5 cm and within the left lobe of the liver measuring 1.6 cm. Dictated by: Dictated on workstation # [id number]
[2019-09-30] MEDS ORDERED: cefTRIAXone FOR IV USE 1,000 MG in WATER (STERILE) FOR INJECTION 10 ML IV ONE (13:15)
[2019-09-30] MEDS ORDERED: PHENAZOPYRIDINE 100 MG (PYRIDIUM) TABLET PO ONE (13:15)
--- NOTE | 2019-09-30 13:15 | ED General ---
General Chief Complaint: - Urinary Stated Complaint: BURNING WITH URINATION/BILAT LEG PAIN Nursing Triage Note: PT AMBULATE TO ROOM 07 WITH C/O BURNING DURING URINATION, BILAT FLANK PAIN, N/V, AND A CRUSHING FEELING IN BILAT LEGS. Nursing Sepsis Screen: No Definite Risk Source of Information: Patient Exam Limitations: No Limitations History of Present Illness Date Seen by Provider: Sep 30, 2019 Time Seen by Provider: 10:15 Initial Comments This 63-year-old gentleman presents to the emergency room with complaints of aching in his lower back, severe dysuria, and aching in his legs. He reports his testicles are also sore. He describes the pain as a crushing sensation. He has been nauseated and vomited about 3 hours ago. He denies any fever. He took Tylenol, airborne, Dior-[place] plus, and has been pushing clear liquids. These measures have not helped his pain much. He denies sexual activity. He denies penile discharge. He has no history of kidney stones. Allergies and Home Medications Allergies Coded Allergies: Penicillins (Unverified Allergy, Unknown, 08/29/18) Home Medications Albuterol Sulfate 18 Gm Hfa.aer.ad, 2 PUFF IH Q4H PRN for SHORTNESS OF BREATH Prescribed by: PHAN VIVEROS on 05/24/16 1846 Alprazolam 0.5 Mg Tablet, 0.5 MG PO Q8H PRN for ANXIETY Prescribed by: SHEEBA PHILLIPS on 06/07/16 1808 Benzonatate 100 Mg Capsule, 100 MG PO Q6H PRN for COUGH Prescribed by: LASHON MITCHELL on 08/29/18 1834 Buspirone HCl 7.5 Mg Tablet, 7.5 MG PO BID Prescribed by: TANMAY ZAVALA on 08/11/16 1633 Cetirizine HCl 10 Mg Capsule, 10 MG PO BID Prescribed by: LASHON MITCHELL on 03/02/18 0542 Clindamycin HCl 300 Mg Capsule, 300 MG PO QID Prescribed by: KATY BERGMAN on 01/15/19 1731 Doxycycline Hyclate 100 Mg Tablet.dr, 100 MG PO BID Prescribed by: KATY BERGMAN on 08/24/16 0248 Famotidine 20 Mg Tablet, 20 MG PO BID Prescribed by: PHAN VIVEROS on 05/24/16 184 Hydrocodone Bit/Acetaminophen 1 Each Tablet, 1 EACH PO Q6H PRN for PAIN Prescribed by: KATY BERGMAN on 08/24/16 0248 Hydrocodone/Acetaminophen 1 Each Tablet, 1 EACH PO Q4H PRN for PAIN Prescribed by: PHAN VIVEROS on 05/24/16 1913 Hydrocortisone 28 Gm Cream..g., 28 GM TP TID PRN for it Prescribed by: TANMAY ZAVALA on 08/11/16 1633 Hydroxyzine Pamoate 25 Mg Capsule, 25 MG PO Q6H Prescribed by: SHEEBA PHILLIPS on 06/07/16 180 Hydroxyzine Pamoate 25 Mg Capsule, 25 MG PO Q6H PRN for ITCHING Prescribed by: LASHON MITCHELL on 03/02/18 0542 Hydroxyzine Pamoate 25 Mg Capsule, 25 MG PO Q6H PRN for ANXIETY Prescribed by: LASHON MITCHELL on 08/29/18 183 Levofloxacin 500 Mg Tablet, 500 MG PO DAILY Prescribed by: KATY BERGMAN on 09/30/19 1317 Mometasone Furoate 15 Gm Cream..g., 15 GM TP DAILY Prescribed by: PHAN VIVEROS on 05/24/16 184 Mometasone Furoate 45 Gm Cream..g., 45 GM TP DAILY Prescribed by: SHEEBA PHILLIPS on 06/07/16 180 Phenazopyridine HCl 200 Mg Tablet, 1 TAB PO TID PRN for PAIN-BREAKTHROUGH Prescribed by: KATY BERGMAN on 09/30/19 1317 Prednisone 20 Mg Tab, 20 MG PO DAILY Prescribed by: KATY BERGMAN on 08/24/16 0248 Prednisone 20 Mg Tab, 40 MG PO DAILY Prescribed by: LASHON MITCHELL on 03/02/18 05 Prednisone 20 Mg Tab, 40 MG PO DAILY Prescribed by: LASHON MTICHELL on 08/29/18 183 Patient Home Medication List Home Medication List Reviewed: Yes Review of Systems Review of Systems Constitutional: no symptoms reported EENTM: no symptoms reported Respiratory: no symptoms reported Cardiovascular: no symptoms reported Gastrointestinal: see HPI Genitourinary: see HPI Musculoskeletal: see HPI Skin: no symptoms reported Psychiatric/Neurological: No Symptoms Reported Hematologic/Lymphatic: No Symptoms Reported Immunological/Allergic: no symptoms reported Past Olpezsp-Mbtxsv-Mwqhfv Hx Past Med/Social Hx: Reviewed Nursing Past Med/Soc Hx Patient Social History Alcohol Use: Occasionally Uses Number of Drinks Today: EE Alcohol Beverage of Choice: Scotch Recreational Drug Use: No Smoking Status: Former Smoker Type Used: Cigarettes Former Smoker, Quit: Aug 15, 2016 2nd Hand Smoke Exposure: No Recent Foreign Travel: No Contact w/Someone Who Travel: No Recent Infectious Disease Expo: No Recent Hopitalizations: No Physical Abuse: No Sexual Abuse: No Mistreated: No Fear: No Seasonal Allergies Seasonal Allergies: Yes Past Medical History Surgeries: No Respiratory: Yes Asthma Cardiac: No Neurological: No Reproductive Disorders: No Genitourinary: No Gastrointestinal: No Musculoskeletal: No Endocrine: No HEENT: No Cancer: No Psychosocial: No Integumentary: Yes (chronic since 2015 reocurrance Eczematous vs contatc dermatitis) Eczema, Pruritis, Recent Skin Changes Blood Disorders: No Family Medical History No Pertinent Family Hx Physical Exam Vital Signs Vital Signs - First Documented 09/30/19 09/30/19 10:14 13:42 Temp 35.6 Pulse 83 Resp 17 B/P (MAP) 118/73 (88) Pulse Ox 98 O2 Delivery Room Air Capillary Refill : Less Than 3 Seconds Height, Weight, BMI Height: 5'10.00" Weight: 210lbs. oz. 95.321100xc; 31.00 BMI Method:Stated General Appearance: No Apparent Distress, WD/WN HEENT: PERRL/EOMI, Normal ENT Inspection Neck: Normal Inspection Respiratory: Lungs Clear, Normal Breath Sounds, No Accessory Muscle Use, No Respiratory Distress Cardiovascular: Regular Rate, Rhythm, No Edema, No Murmur Gastrointestinal: Normal Bowel Sounds, Soft Genital/Rectal: Normal Genital Exam, Other (Posterior testicles are tender bilaterally) Back: Normal Inspection, No CVA Tenderness Extremity: Normal Inspection, No Pedal Edema Neurologic/Psychiatric: Alert, Oriented x3, No Motor/Sensory Deficits, Normal 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, 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 Norm as Tested Skin: Normal Color, Warm/Dry Progress/Results/Core Measures Suspected Sepsis Recent Fever Within 48 Hours: No Infection Criteria Present: None New/Unexplained Altered Menta: No Sepsis Screen: No Definite Risk SIRS Temperature: Pulse: 83 Respiratory Rate: 17 Laboratory Tests 09/30/19 10:29: White Blood Count 18.5H Blood Pressure 118 /73 Mean: 88 Laboratory Tests 09/30/19 10:29: Creatinine 1.21, Platelet Count 330, Total Bilirubin 0.8 Results/Orders Lab Results Laboratory Tests Test 09/30/19 10:29 09/30/19 10:37 Range/Units White Blood Count 18.5 H 4.3-11.0 10^3/uL Red Blood Count 5.04 4.35-5.85 10^6/uL Hemoglobin 14.6 13.3-17.7 G/DL Hematocrit 44 40-54 % Mean Corpuscular Volume 87 80-99 FL Mean Corpuscular Hemoglobin 29 25-34 PG Mean Corpuscular Hemoglobin Concent 33 32-36 G/DL Red Cell Distribution Width 12.9 10.0-14.5 % Platelet Count 330 130-400 10^3/uL Mean Platelet Volume 9.2 7.4-10.4 FL Neutrophils (%) (Auto) 77 H 42-75 % Lymphocytes (%) (Auto) 11 L 12-44 % Monocytes (%) (Auto) 11 0-12 % Eosinophils (%) (Auto) 1 0-10 % Basophils (%) (Auto) 0 0-10 % Neutrophils # (Auto) 14.2 H 1.8-7.8 X 10^3 Lymphocytes # (Auto) 2.0 1.0-4.0 X 10^3 Monocytes # (Auto) 2.1 H 0.0-1.0 X 10^3 Eosinophils # (Auto) 0.1 0.0-0.3 10^3/uL Basophils # (Auto) 0.1 0.0-0.1 10^3/uL Neutrophils % (Manual) 75 % Lymphocytes % (Manual) 3 % Monocytes % (Manual) 5 % Eosinophils % (Manual) 0 % Basophils % (Manual) 1 % Band Neutrophils 6 % Reactive Lymphocytes 10 % Blood Morphology Comment NORMAL Sodium Level 133 L 135-145 MMOL/L Potassium Level 3.7 3.6-5.0 MMOL/L Chloride Level 95 L 98-107 MMOL/L Carbon Dioxide Level 27 21-32 MMOL/L Anion Gap 11 5-14 MMOL/L Blood Urea Nitrogen 13 7-18 MG/DL Creatinine 1.21 0.60-1.30 MG/DL Estimat Glomerular Filtration Rate > 60 BUN/Creatinine Ratio 11 Glucose Level 102 70-105 MG/DL Calcium Level 9.4 8.5-10.1 MG/DL Corrected Calcium 9.5 8.5-10.1 MG/DL Total Bilirubin 0.8 0.1-1.0 MG/DL Aspartate Amino Transf (AST/SGOT) 29 5-34 U/L Alanine Aminotransferase (ALT/SGPT) 32 0-55 U/L Alkaline Phosphatase 112 40-136 U/L Total Creatine Kinase 221 H 30-200 U/L C-Reactive Protein High Sensitivity 23.76 H 0.00-0.50 MG/DL Total Protein 7.8 6.4-8.2 GM/DL Albumin 3.9 3.2-4.5 GM/DL Urine Color HALEIGH H Urine Clarity CLOUDY Urine pH 6.0 5-9 Urine Specific [place] 1.020 1.016-1.022 Urine Protein 2+ H NEGATIVE Urine Glucose (UA) NEGATIVE NEGATIVE Urine Ketones TRACE H NEGATIVE Urine Nitrite NEGATIVE NEGATIVE Urine Bilirubin 2+ H NEGATIVE Urine Urobilinogen 2.0 < = 1.0 MG/DL Urine Leukocyte Esterase TRACE H NEGATIVE Urine RBC (Auto) 3+ H NEGATIVE Urine RBC 5-10 H /HPF Urine WBC 25-50 H /HPF Urine Squamous Epithelial Cells RARE /HPF Urine Crystals NONE /LPF Urine Bacteria NEGATIVE /HPF Urine Casts NONE /LPF Urine Mucus LARGE H /LPF Urine Culture Indicated YES My Orders Orders - KATY KIM MD Ua Culture If Indicated (09/30/19 10:11) Cbc With Automated Diff (09/30/19 10:25) Comprehensive Metabolic Panel (09/30/19 10:25) Creatine Kinase (09/30/19 10:25) Hs C Reactive Protein (09/30/19 10:25) Bladder Scan (09/30/19 10:37) Manual Differential (09/30/19 10:29) Ondansetron Injection (Zofran Injectio (09/30/19 10:45) Urine Culture (09/30/19 10:37) Ct Abd/Pelvis Wo(Kidney Stone) (09/30/19 11:50) Ketorolac Injection (Toradol Injection) (09/30/19 12:00) Ceftriaxone For Iv Use (Rocephin For I (09/30/19 13:15) Phenazopyridine Tablet (Pyridium Tablet) (09/30/19 13:15) Medications Given in ED Current Medications Medications Dose Ordered Sig/Rita Route Start Time Stop Time Status Last Admin Dose Admin Ceftriaxone Sodium 1000 mg/ Sterile Water 10 ml @ 200 mls/hr ONCE ONCE IV 09/30/19 13:15 09/30/19 13:17 DC 09/30/19 13:25 200 MLS/HR Ketorolac Tromethamine 15 mg ONCE ONCE IVP 09/30/19 12:00 09/30/19 12:01 DC 09/30/19 11:58 15 MG Ondansetron HCl 8 mg ONCE ONCE IVP 09/30/19 10:45 09/30/19 10:46 DC 09/30/19 10:45 8 MG Phenazopyridine HCl 200 mg ONCE ONCE PO 09/30/19 13:15 09/30/19 13:16 DC 09/30/19 13:25 200 MG Vital Signs/I&O 09/30/19 09/30/19 10:14 13:42 Temp 35.6 Pulse 83 69 Resp 17 18 B/P (MAP) 118/73 (88) 137/76 Pulse Ox 98 O2 Delivery Room Air Room Air Capillary Refill : Less Than 3 Seconds Blood Pressure Mean: 88 Progress Note : Progress Note Because of patient's significant symptoms in context of leukocytosis and significant UA findings, further workup was felt appropriate. I offered CT scan after discussing risks and benefits. Patient elects to proceed with CT scan. CT revealed cystitis with inflammatory changes around the bladder. No surgical emergencies were identified. Issues that have epididymitis and urinary tract infection with severe symptoms. He was given a gram of Rocephin in the ER and prescribed Levaquin. Diagnostic Imaging Diagonstic Imaging: CT Plain Films/CT/US/NM/MRI: abdomen, pelvis Comments CT abdomen and pelvis viewed by me and report reviewed. See report below: NAME: KARLO HEBERT [facility] REC#: [id number] PT STATUS: DEP ER : 1955 PHYSICIAN: KATY KIM MD ADMIT DATE: 09/30/19/ER Signed Date of Exam:09/30/19 CT ABD/PELVIS WO(KIDNEY STONE) PROCEDURE: CT urinary tract, rule out kidney stone. TECHNIQUE: Multiple contiguous axial images were obtained through the abdomen and pelvis without the use of intravenous contrast. Auto Exposure Controls were utilized during the CT exam to meet ALARA standards for radiation dose reduction. INDICATION: Bladder pain with nausea. FINDINGS: The kidneys show no calculi. No hydronephrosis. There is a cyst off the lower pole of the right kidney measuring 1.5 cm. Ureters are not dilated. Bladder decompressed. There is a questionable mild thickening of bladder wall though this may be secondary to decompressed state. However there is some adjacent mesenteric edema about the bladder. The prostate is rather enlarged. The colon shows normal stool and gas pattern. There is no evidence of diverticulitis. No evidence of obstructive process. Small bowel is not dilated. The appendix is not visualized. There is a 1.6 cm hypoechoic cystic lesion left lobe of the liver. Liver otherwise appears normal. The gallbladder and bile ducts are not dilated. The pancreas is normal. The spleen is normal. The adrenal glands are normal. No evidence of aortic aneurysm or dissection with minimal atherosclerotic disease. No free air or free fluid. No blastic or lytic bony changes. IMPRESSION: 1. The bladder is decompressed. Question of some bladder wall thickening with adjacent mesenteric fat edema which could be secondary to cystitis. Clinical correlation. 2. No evidence of renal or ureteral calculi. No bladder stones. 3. No evidence of diverticulitis or acute inflammatory bowel changes. 4. The cystic lesion off the lower pole of the right kidney measuring 1.5 cm and within the left lobe of the liver measuring 1.6 cm. Dictated by: Dictated on workstation # [id number] Dict: 09/30/19 1230 Trans: 09/30/19 1426 BANNER [id number] Interpreted by: JASON PINO MD Electronically signed by: JASON PINO MD 09/30/19 1426 Departure Impression Primary Impression: Urinary tract infection Qualified Codes: N30.01 - Acute cystitis with hematuria Additional Impression: Epididymitis Disposition: HOME, SELF-CARE Condition: Improved Departure-Patient Inst. Decision time for Depature: 13:05 Referrals: [facility] (PCP/Family) Primary Care Physician Patient Instructions: Epididymitis, Urinary Tract Infection, Adult (DC) Add. Discharge Instructions: Pickup your Levaquin antibiotic today and start it as soon as possible. Complete the entire 10 day course. Continue to drink plenty of clear liquids to well-hydrated and flush out your urinary tract. Follow-up with your primary care provider on Tuesday or Tuesday to review urine culture results. I also suggest that you have a repeat urinalysis performed after you completely antibiotics to ensure blood and infection clears from your urine. Please have a low threshold for returning to the ER if you have worsening symptoms which might include fever, increasing pain, vomiting, etc. For pain you may take Pyridium which will help numb the bladder and penis. Please be aware this may turn your urine and orangeish or red color. You may additionally take Tylenol (acetaminophen) up to 1000 mg every 6 hours as needed and/or ibuprofen up to 600 mg every 6 hours as needed. All discharge instructions reviewed with patient and/or family. Voiced understanding. Scripts Levofloxacin (Levaquin) 500 Mg Tablet 500 MG PO DAILY, #10 TAB Prov: KATY KIM MD 09/30/19 Phenazopyridine HCl (Pyridium) 200 Mg Tablet 1 TAB PO TID PRN for PAIN-BREAKTHROUGH, #10 TAB Prov: KATY KIM MD 09/30/19 Copy Copies To 1: REDD SCHERER JOSHUA T MD Sep 30, 2019 13:15
[2019-09-30] MEDS ORDERED: LEVO500T2 PO (13:17)
[2019-09-30] MEDS ORDERED: PHEN-640 PO (13:17)
[2019-09-30 13:42] VITALS: BP 137/76
== END 2019-09-30 13:42 | disposition home or self-care (01) ==
LOC: EDUNIT# 10:08 → ER 10:09
DX: N39.0 Urinary tract infection, site not specified (principal); N45.1 Epididymitis; J45.909 Unspecified asthma, uncomplicated; Z88.0 Allergy status to penicillin; Z79.51 Long term (current) use of inhaled steroids; Z79.52 Long term (current) use of systemic steroids; Z87.891 Personal history of nicotine dependence
CPT/HCPCS: 36415; 74176; 80053; 81000; 82550; 85007; 85027; 86141; 87088; 96374; 96375

== ENCOUNTER 2019-11-13 14:50 | Emergency (ER) | payer MEDICAID ==
[~2019-11-13] VITALS: Ht 177 cm; Wt 95.2 kg
[~2019-11-13 14:50] MED LIST changes: +LEVO500T2 PO; -MOME15CR17 TP; +MOME15CR8 TP; +PHEN-640 PO
[2019-11-13 14:52] VITALS: BP 177/98
[2019-11-13] MEDS ORDERED: RT-ALBUTEROL/IPRATROPIUM 3 ML (DUONEB) VIAL ONE (14:59)
[2019-11-13] MEDS ORDERED: NS IV 500 ML 500 ML IV ONE (14:59)
[2019-11-13] MEDS ORDERED: methylPREDNISolone 125 MG (Solu-MEDROL) VIAL IVP ONE (15:00)
[2019-11-13] MEDS ORDERED: diphenhydrAMINE 50 MG/ML INJ (BENADRYL) IVP ONE (15:00)
[2019-11-13 15:09] LABS: BASOPHILS # (AUTO) 0.1 10^3/uL (0.0-0.1); BASOPHILS % (AUTO) 1 % (0-10); EOSINOPHILS # (AUTO) 0.6 10^3/uL (0.0-0.3); EOSINOPHILS % (AUTO) 6 % (0-10); HEMATOCRIT 48 % (40-54); HEMOGLOBIN 15.4 G/DL (13.3-17.7); LYMPHOCYTES # (AUTO) 3.6 X 10^3 (1.0-4.0); LYMPHOCYTES % (AUTO) 36 % (12-44); MEAN CORPUSCULAR HEMOGLOBIN 28 PG (25-34); MEAN CORPUSCULAR HGB CONC 32 G/DL (32-36); MEAN CORPUSCULAR VOLUME 88 FL (80-99); MEAN PLATELET VOLUME 9.6 FL (7.4-10.4); MONOCYTES # (AUTO) 1.2 X 10^3 (0.0-1.0); MONOCYTES % (AUTO) 11 % (0-12); NEUTROPHILS # (AUTO) 4.7 X 10^3 (1.8-7.8); NEUTROPHILS % (AUTO) 47 % (42-75); PLATELET COUNT 262 10^3/uL (130-400); RED CELL DISTRIBUTION WIDTH 13.5 % (10.0-14.5); WHITE BLOOD COUNT 10.1 10^3/uL (4.3-11.0)
[2019-11-13 15:25] LABS: BUN/CREATININE RATIO 12; CALCIUM 9.2 MG/DL (8.5-10.1); CARBON DIOXIDE 24 MMOL/L (21-32); CHLORIDE 103 MMOL/L (98-107); CREATININE SERUM 0.95 MG/DL (0.60-1.30); GFR ESTIMATED > 60; GLUCOSE 87 MG/DL (70-105); POTASSIUM 3.6 MMOL/L (3.6-5.0); SODIUM 140 MMOL/L (135-145)
--- NOTE | 2019-11-13 15:25 | NUR ---
Patient's oxygen saturation drops to 88% on room air after breathing treatment. Patient placed back on oxy-mask at 4 LPM. Oxygen saturation rises to 98%.
--- NOTE | 2019-11-13 15:44 | NUR ---
Patient resting quietly in bed. He denies any needs at this time.
--- NOTE | 2019-11-13 16:23 | NUR ---
Oxygen saturation is 92% on room air. Patient states he feels much better.
[2019-11-13] MEDS ORDERED: RT-ALBUTEROL/IPRATROPIUM 3 ML (DUONEB) VIAL INH ONE (17:00)
--- NOTE | 2019-11-13 17:39 | NUR ---
Patient back to room from radiology via wheelchair. Patient on oxygen at 2 LPM via NC due to oxygen saturation dropping to 86% on room air.
--- NOTE | 2019-11-13 17:42 | Diagnostic Imaging Report ---
INDICATION: Asthma and shortness of air. TIME OF EXAM 5:42 PM CORRELATION is made with prior chest from 08/29/2018. The heart size is normal. The pulmonary vascularity is unremarkable. The lungs are clear. No infiltrate, effusion or pneumothorax is detected. IMPRESSION: No acute cardiopulmonary process is detected. Dictated by: Dictated on workstation # [id number]
--- NOTE | 2019-11-13 17:50 | NUR ---
Patient requesting to leave AMA at this time. He states he is feeling better and just wants to go home. Patient signs AMA paperwork and is given discharge paperwork. Patient is awake and alert. He is made aware of risks associated with leaving AMA and he states he understands the risks.
[2019-11-13] MEDS ORDERED: PRD20T PO (17:54)
--- NOTE | 2019-11-13 17:55 | ED Respiratory ---
General Chief Complaint: Respiratory Problems Stated Complaint: SOA Nursing Triage Note: Patient walked to ER room 7 with complaint of shortness of breath. Patient states he was vaccuming dust in his attic when the dusk came out of the vaccum and blew back into his face. He states he immediately began having shortness of breath and self-administered an albuterol inhaler with no relief. Patient is awake and alert x 4. He has audible wheezing present. Source: patient Exam Limitations: no limitations History of Present Illness Date Seen by Provider: Nov 13, 2019 Time Seen by Provider: 14:55 Initial Comments This 63-year-old gentleman presents to the emergency room with shortness of breath and wheezing. He was cleaning in the attic then turned on the vacuum sanitation truck cleaner. The suction setting was reversed and it blew dust in his face. He has a dust allergy and immediately began to have wheezing and shortness of breath. He had felt well prior to that and had spent a couple of hours cleaning the house without any difficulty. He denied any prior cough or fever. He has no stated risk factors for valentin virus. Allergies and Home Medications Allergies Coded Allergies: Penicillins (Unverified Allergy, Unknown, 08/29/18) Home Medications Albuterol Sulfate 18 Gm Hfa.aer.ad, 2 PUFF IH Q4H PRN for SHORTNESS OF BREATH Prescribed by: PHAN VIVEROS on 05/24/16 184 Alprazolam 0.5 Mg Tablet, 0.5 MG PO Q8H PRN for ANXIETY Prescribed by: SHEEBA PHILLIPS on 06/07/16 1808 Benzonatate 100 Mg Capsule, 100 MG PO Q6H PRN for COUGH Prescribed by: LASHON MITCHELL on 08/29/18 1834 Buspirone HCl 7.5 Mg Tablet, 7.5 MG PO BID Prescribed by: TANMAY ZAVALA on 08/11/16 1633 Cetirizine HCl 10 Mg Capsule, 10 MG PO BID Prescribed by: LASHON MITCHELL on 03/02/18 0542 Clindamycin HCl 300 Mg Capsule, 300 MG PO QID Prescribed by: KATY BERGMAN on 01/15/19 1731 Doxycycline Hyclate 100 Mg Tablet.dr, 100 MG PO BID Prescribed by: KATY BERGMAN on 08/24/16 0248 Famotidine 20 Mg Tablet, 20 MG PO BID Prescribed by: PHAN VIVEROS on 05/24/16 184 Hydrocodone Bit/Acetaminophen 1 Each Tablet, 1 EACH PO Q6H PRN for PAIN Prescribed by: KATY BERGMAN on 08/24/16 0248 Hydrocodone/Acetaminophen 1 Each Tablet, 1 EACH PO Q4H PRN for PAIN Prescribed by: PHAN VIVEROS on 05/24/16 191 Hydrocortisone 28 Gm Cream..g., 28 GM TP TID PRN for it Prescribed by: TANMAY ZAVALA on 08/11/16 1633 Hydroxyzine Pamoate 25 Mg Capsule, 25 MG PO Q6H Prescribed by: SHEEBA PHILLIPS on 06/07/16 180 Hydroxyzine Pamoate 25 Mg Capsule, 25 MG PO Q6H PRN for ITCHING Prescribed by: LASHON MITCHELL on 03/02/18 0542 Hydroxyzine Pamoate 25 Mg Capsule, 25 MG PO Q6H PRN for ANXIETY Prescribed by: LASHON MITCHELL on 08/29/18 183 Levofloxacin 500 Mg Tablet, 500 MG PO DAILY Prescribed by: KATY BERGMAN on 09/30/19 1317 Mometasone Furoate 15 Gm Cream..g., 15 GM TP DAILY Prescribed by: PHAN VIVEROS on 05/24/16 184 Mometasone Furoate 45 Gm Cream..g., 45 GM TP DAILY Prescribed by: SHEEBA PHILLIPS on 06/07/16 180 Phenazopyridine HCl 200 Mg Tablet, 1 TAB PO TID PRN for PAIN-BREAKTHROUGH Prescribed by: KATY BERGMAN on 09/30/19 1317 Prednisone 20 Mg Tab, 20 MG PO DAILY Prescribed by: KATY BERGMAN on 08/24/16 0248 Prednisone 20 Mg Tab, 40 MG PO DAILY Prescribed by: LASHON MITCHELL on 03/02/18 0542 Prednisone 20 Mg Tab, 40 MG PO DAILY Prescribed by: LASHON MITCHELL on 08/29/18 183 Prednisone 20 Mg Tab, 40 MG PO DAILY Prescribed by: KATY BERGMAN on 11/13/19 1754 Patient Home Medication List Home Medication List Reviewed: Yes Review of Systems Review of Systems Constitutional: no symptoms reported EENTM: no symptoms reported Respiratory: see HPI Cardiovascular: no symptoms reported Gastrointestinal: no symptoms reported Genitourinary: no symptoms reported Musculoskeletal: no symptoms reported Skin: no symptoms reported Psychiatric/Neurological: No Symptoms Reported Hematologic/Lymphatic: No Symptoms Reported Immunological/Allergic: see HPI Past Cbkpcat-Oyesws-Hequgs Hx Past Med/Social Hx: Reviewed Nursing Past Med/Soc Hx Patient Social History Alcohol Use: Denies Use Number of Drinks Today: EE Alcohol Beverage of Choice: Scotch Recreational Drug Use: No Smoking Status: Current Everyday Smoker Type Used: Cigarettes Former Smoker, Quit: Aug 15, 2016 2nd Hand Smoke Exposure: No Recent Foreign Travel: No Contact w/Someone Who Travel: No Recent Infectious Disease Expo: No Recent Hopitalizations: No Physical Abuse: No Sexual Abuse: No Mistreated: No Fear: No Seasonal Allergies Seasonal Allergies: Yes Past Medical History Surgeries: No Respiratory: Yes Asthma Cardiac: No Neurological: No Reproductive Disorders: No Genitourinary: No Gastrointestinal: No Musculoskeletal: No Endocrine: No HEENT: No Cancer: No Psychosocial: No Integumentary: Yes (chronic since 2015 reocurrance Eczematous vs contatc dermatitis) Eczema, Pruritis, Recent Skin Changes Blood Disorders: No Family Medical History No Pertinent Family Hx Physical Exam Vital Signs - First Documented 11/13/19 11/13/19 14:52 15:08 Temp 36.0 Pulse 103 Resp 22 B/P (MAP) 177/98 (124) Pulse Ox 95 O2 Delivery Room Air O2 Flow Rate 5.00 Capillary Refill : Less Than 3 Seconds Height: 5'10.00" Weight: 210lbs. oz. 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 II-XII nml as tested, no motor/sensory deficits, alert, normal mood/affect, oriented x 3 Skin: normal color, warm/dry Progress/Results/Core Measures Suspected Sepsis Recent Fever Within 48 Hours: No Infection Criteria Present: None New/Unexplained Altered Menta: No Sepsis Screen: No Definite Risk SIRS Temperature: Pulse: 103 Respiratory Rate: 22 Laboratory Tests 11/13/19 15:01: White Blood Count 10.1 Blood Pressure 177 /98 Mean: 124 Laboratory Tests 11/13/19 15:01: Creatinine 0.95, Platelet Count 262 Results/Orders Lab Results Laboratory Tests Test 11/13/19 15:01 Range/Units White Blood Count 10.1 4.3-11.0 10^3/uL Red Blood Count 5.43 4.35-5.85 10^6/uL Hemoglobin 15.4 13.3-17.7 G/DL Hematocrit 48 40-54 % Mean Corpuscular Volume 88 80-99 FL Mean Corpuscular Hemoglobin 28 25-34 PG Mean Corpuscular Hemoglobin Concent 32 32-36 G/DL Red Cell Distribution Width 13.5 10.0-14.5 % Platelet Count 262 130-400 10^3/uL Mean Platelet Volume 9.6 7.4-10.4 FL Neutrophils (%) (Auto) 47 42-75 % Lymphocytes (%) (Auto) 36 12-44 % Monocytes (%) (Auto) 11 0-12 % Eosinophils (%) (Auto) 6 0-10 % Basophils (%) (Auto) 1 0-10 % Neutrophils # (Auto) 4.7 1.8-7.8 X 10^3 Lymphocytes # (Auto) 3.6 1.0-4.0 X 10^3 Monocytes # (Auto) 1.2 H 0.0-1.0 X 10^3 Eosinophils # (Auto) 0.6 H 0.0-0.3 10^3/uL Basophils # (Auto) 0.1 0.0-0.1 10^3/uL Sodium Level 140 135-145 MMOL/L Potassium Level 3.6 3.6-5.0 MMOL/L Chloride Level 103 98-107 MMOL/L Carbon Dioxide Level 24 21-32 MMOL/L Anion Gap 13 5-14 MMOL/L Blood Urea Nitrogen 11 7-18 MG/DL Creatinine 0.95 0.60-1.30 MG/DL Estimat Glomerular Filtration Rate > 60 BUN/Creatinine Ratio 12 Glucose Level 87 70-105 MG/DL Calcium Level 9.2 8.5-10.1 MG/DL C-Reactive Protein High Sensitivity 0.97 H 0.00-0.50 MG/DL My Orders Orders - BRUEGGEMANN,KATY T MD Cbc With Automated Diff (11/13/19 14:59) Hs C Reactive Protein (11/13/19 14:59) Basic Metabolic Panel (11/13/19 14:59) Ed Iv/Invasive Line Start (11/13/19 14:59) Ns Iv 500 Ml (Sodium Chloride 0.9%) (11/13/19 14:59) Diphenhydramine Injection (Benadryl Inje (11/13/19 15:00) Methylprednisolone Sod Succ (Solu-Medrol (11/13/19 15:00) Albuterol/Ipra Inhalation Soln (Duoneb I (11/13/19 14:59) Albuterol/Ipra Inhalation Soln (Duoneb I (11/13/19 17:00) Svn Small Volume Nebulizer (11/13/19 16:59) Chest Pa/Lat (2 View) (11/13/19 17:27) Medications Given in ED Current Medications Medications Dose Ordered Sig/Rita Route Start Time Stop Time Status Last Admin Dose Admin Albuterol/ Ipratropium 3 ml STK-MED ONCE .ROUTE 11/13/19 14:59 11/13/19 15:06 DC 11/13/19 15:20 3 ML Diphenhydramine HCl 25 mg ONCE ONCE IVP 11/13/19 15:00 11/13/19 15:02 DC 11/13/19 15:08 25 MG Methylprednisolone Sodium Succinate 125 mg ONCE ONCE IVP 11/13/19 15:00 11/13/19 15:02 DC 11/13/19 15:08 125 MG Sodium Chloride 500 ml @ 0 mls/hr Q0M ONCE IV 11/13/19 14:59 11/13/19 15:01 DC 11/13/19 15:07 500 MLS/HR Vital Signs/I&O 11/13/19 11/13/19 11/13/19 14:52 15:08 17:06 Temp 36.0 Pulse 103 Resp 22 B/P (MAP) 177/98 (124) Pulse Ox 95 97 95 O2 Delivery Room Air OxyMask Room Air O2 Flow Rate 5.00 Capillary Refill : Less Than 3 Seconds Blood Pressure Mean: 124 Progress Note : Progress Note Over the course of a few hours patient received 2 DuoNeb treatments, Solu-Medrol 125 mg, and Benadryl 25 mg by IV route. He was mildly hypoxic and requiring oxygen support. Unfortunately, he still maintained saturations around 88-90 percent even after the treatments. I encouraged him to be admitted for observation but he declined due to fear of the valentin virus situation. He signed the AMA form. I still did send him a prescription for prednisone as I antiseptic toward his situation and his decision. Diagnostic Imaging Diagonstic Imaging: Xray Plain Films/CT/US/NM/MRI: chest Comments Chest x-ray viewed by me and report reviewed. See report below: NAME: KARLO HEBERT [facility] REC#: [id number] PT STATUS: REG ER : 1955 PHYSICIAN: KATY KIM MD ADMIT DATE: 11/13/19/ER Draft Date of Exam:11/13/19 CHEST PA/LAT (2 VIEW) INDICATION: Asthma and shortness of air. TIME OF EXAM 5:42 PM CORRELATION is made with prior chest from 08/29/2018. The heart size is normal. The pulmonary vascularity is unremarkable. The lungs are clear. No infiltrate, effusion or pneumothorax is detected. IMPRESSION: No acute cardiopulmonary process is detected. Dictated on workstation # [id number] Dict: 11/13/19 1740 Trans: 11/13/19 174 [facility] [id number] Interpreted by: MARE SALDANA MD Departure Impression Primary Impression: Asthma exacerbation Qualified Codes: J45.901 - Unspecified asthma with (acute) exacerbation Additional Impression: Hypoxia Disposition: 07 AGAINST MEDICAL ADVICE Condition: Against Medical Advice Departure-Patient Inst. Referrals: [facility] (PCP/Family) Primary Care Physician Patient Instructions: Asthma, Adult (DC) Add. Discharge Instructions: Complete the short course of steroids as prescribed. Also take an lwug-enc-bzgaxhr allergy medication such as Claritin (loratadine) or Zyrtec (cetirizine). Use your inhaler as directed. Return to the emergency room if you have worsening of symptoms. Follow-up with your primary care provider soon as possible. All discharge instructions reviewed with patient and/or family. Voiced understanding. Scripts Prednisone (Prednisone) 20 Mg Tab 40 MG PO DAILY, #8 TAB 0 Refills Prov: KATY KIM MD 11/13/19 Copy Copies To 1: REDD SCHERER JOSHUA T MD Nov 13, 2019 17:55
== END 2019-11-13 17:50 | disposition left against medical advice (07) ==
LOC: EDUNIT# 14:50 → ER 14:51
DX: J45.901 Unspecified asthma with (acute) exacerbation (principal); R09.02 Hypoxemia; Z87.891 Personal history of nicotine dependence; Z79.899 Other long term (current) drug therapy
CPT/HCPCS: 36415; 71046; 80048; 85025; 86141; 94640

== ENCOUNTER 2020-03-02 19:22 | Emergency (ER) | payer MEDICAID ==
[~2020-03-02] VITALS: Ht 177 cm; Wt 100.0 kg
[2020-03-02] MEDS ORDERED: RT-ALBUTEROL/IPRATROPIUM 3 ML (DUONEB) VIAL ONE (19:31)
[2020-03-02] MEDS ORDERED: NS IV 1000 ML 1,000 ML IV SCH (19:37)
[2020-03-02] MEDS ORDERED: MAGNESIUM 1 GM/100 ML IVPB 100 ML IV ONE (19:45)
[2020-03-02] MEDS ORDERED: methylPREDNISolone 125 MG (Solu-MEDROL) VIAL IVP ONE (19:45)
[2020-03-02] MEDS ORDERED: diphenhydrAMINE 50 MG/ML INJ (BENADRYL) IVP ONE (19:45)
[2020-03-02] MEDS ORDERED: RT-ALBUTEROL/IPRATROPIUM 3 ML (DUONEB) VIAL INH ONE (19:45)
[2020-03-02] MEDS ORDERED: RT-ALBUTEROL SULF 2.5 MG/3 ML PRE-MIX VIAL ONE (19:55)
[2020-03-02 19:56] LABS: BASOPHILS % (AUTO) 0 % (0-10); EOSINOPHILS # (AUTO) 0.7 10^3/uL (0.0-0.3); EOSINOPHILS % (AUTO) 6 % (0-10); HEMATOCRIT 46 % (40-54); HEMOGLOBIN 15.3 G/DL (13.3-17.7); LYMPHOCYTES # (AUTO) 3.9 X 10^3 (1.0-4.0); LYMPHOCYTES % (AUTO) 34 % (12-44); MEAN CORPUSCULAR HEMOGLOBIN 29 PG (25-34); MEAN CORPUSCULAR HGB CONC 33 G/DL (32-36); MEAN CORPUSCULAR VOLUME 87 FL (80-99); MEAN PLATELET VOLUME 9.9 FL (7.4-10.4); MONOCYTES # (AUTO) 0.7 X 10^3 (0.0-1.0); MONOCYTES % (AUTO) 6 % (0-12); NEUTROPHILS # (AUTO) 6.2 X 10^3 (1.8-7.8); NEUTROPHILS % (AUTO) 54 % (42-75); PLATELET COUNT 268 10^3/uL (130-400); RED CELL DISTRIBUTION WIDTH 12.5 % (10.0-14.5); WHITE BLOOD COUNT 11.5 10^3/uL (4.3-11.0)
--- NOTE | 2020-03-02 19:57 | ED Respiratory ---
General Chief Complaint: Respiratory Problems Stated Complaint: ASTHMA Source: patient Exam Limitations: no limitations History of Present Illness Date Seen by Provider: Mar 02, 2020 Time Seen by Provider: 19:23 Initial Comments This 64-year-old gentleman with history of asthma presents to the emergency room with very tight wheezing, shortness of breath, and hypoxia. He was working on a mower in the garage when the belt kicked out grass and dust. He has been experiencing increasing shortness of breath in recent days and had a severe exacerbation of the wheezing and shortness of breath when working on the mower. He has been using DuoNeb treatments at home. EMS also administered a DuoNeb treatment. Oxygen saturation was 90 percent for EMS on room air. Patient has a history of asthma and was seen in October for a similar episode when a vacuum cleaner carpet and upholstery kicked up dust in his face. He left with an oxygen saturation around 90 percent and signed an AMA form at that time. He left AMA citing fear of exposure to coronavirus while in the hospital. He is afebrile but appears diaphoretic. It is hot outside at present. Patient denies any known exposure to coronavirus. He has had limited outings into the public. He has spent some time with his grandson. However, there is community spread in the area at this time. Allergies and Home Medications Allergies Coded Allergies: Penicillins (Unverified Allergy, Unknown, 08/29/18) Home Medications Albuterol Sulfate 18 Gm Hfa.aer.ad, 2 PUFF IH Q4H PRN for SHORTNESS OF BREATH Prescribed by: PHAN VIVEROS on 05/24/16 1846 Alprazolam 0.5 Mg Tablet, 0.5 MG PO Q8H PRN for ANXIETY Prescribed by: SHEEBA PHILLIPS on 06/07/16 1808 Benzonatate 100 Mg Capsule, 100 MG PO Q6H PRN for COUGH Prescribed by: LASHON MITCHELL on 08/29/18 1834 Buspirone HCl 7.5 Mg Tablet, 7.5 MG PO BID Prescribed by: TANMAY ZAVALA on 08/11/16 1633 Cetirizine HCl 10 Mg Capsule, 10 MG PO BID Prescribed by: LASHON MITCHELL on 03/02/18 0542 Clindamycin HCl 300 Mg Capsule, 300 MG PO QID Prescribed by: KATY BERGMAN on 01/15/19 1731 Doxycycline Hyclate 100 Mg Tablet.dr, 100 MG PO BID Prescribed by: KATY BERGMAN on 08/24/16247 Famotidine 20 Mg Tablet, 20 MG PO BID Prescribed by: PHAN VIEVROS on 05/24/161841 Fluticasone Propionate 9.9 Ml [place].susp, 2 SPRAY NSEACH DAILY 2 SPRAYS PER NOSTRIL DAILY X 2 DAYS THEN 1 SPRAY DAILY Prescribed by: KATY BERGMAN on 03/02/202120 Hydrocodone Bit/Acetaminophen 1 Each Tablet, 1 EACH PO Q6H PRN for PAIN Prescribed by: KATY BERGMAN on 08/24/16247 Hydrocodone/Acetaminophen 1 Each Tablet, 1 EACH PO Q4H PRN for PAIN Prescribed by: PHAN VIVEROS on 05/24/16 191 Hydrocortisone 28 Gm Cream..g., 28 GM TP TID PRN for it Prescribed by: ATNMAY ZAVALA on 08/11/16 1633 Hydroxyzine Pamoate 25 Mg Capsule, 25 MG PO Q6H Prescribed by: SHEEBA PHILLIPS on 06/07/16 180 Hydroxyzine Pamoate 25 Mg Capsule, 25 MG PO Q6H PRN for ITCHING Prescribed by: LASHON MITCHELL on 03/02/18 0542 Hydroxyzine Pamoate 25 Mg Capsule, 25 MG PO Q6H PRN for ANXIETY Prescribed by: LASHON MITCHELL on 08/29/18 1834 Ipratropium/Albuterol Sulfate 3 Ml Ampul.neb, 3 ML IH Q4H PRN for SHORTNESS OF BREATH Prescribed by: KATY BERGMAN on 03/02/202120 Levofloxacin 500 Mg Tablet, 500 MG PO DAILY Prescribed by: KATY BERGMAN on 09/30/19 1317 Mometasone Furoate 15 Gm Cream..g., 15 GM TP DAILY Prescribed by: PHAN VIVEROS on 05/24/161841 Mometasone Furoate 45 Gm Cream..g., 45 GM TP DAILY Prescribed by: SHEEBA PHILLIPS on 06/07/16 180 Phenazopyridine HCl 200 Mg Tablet, 1 TAB PO TID PRN for PAIN-BREAKTHROUGH Prescribed by: KATY BERGMAN on 09/30/19 1317 Prednisone 20 Mg Tab, 20 MG PO DAILY Prescribed by: KATY BERGMAN on 08/24/16 0248 Prednisone 20 Mg Tab, 40 MG PO DAILY Prescribed by: LASHON MITCHELL on 03/02/18 0542 Prednisone 20 Mg Tab, 40 MG PO DAILY Prescribed by: LASHON MITCHELL on 08/29/18 1834 Prednisone 20 Mg Tab, 40 MG PO DAILY Prescribed by: KATY BERGMAN on 11/13/19 1754 Prednisone 20 Mg Tab, 40 MG PO DAILY Prescribed by: KATY BERGMAN on 03/02/202120 Patient Home Medication List Home Medication List Reviewed: Yes Review of Systems Review of Systems Constitutional: no symptoms reported EENTM: no symptoms reported Respiratory: see HPI, wheezing Cardiovascular: No chest pain Gastrointestinal: No constipation, No diarrhea; other (bloating) Genitourinary: no symptoms reported Musculoskeletal: no symptoms reported Skin: no symptoms reported Psychiatric/Neurological: No Symptoms Reported Hematologic/Lymphatic: No Symptoms Reported Immunological/Allergic: no symptoms reported Past Uzwrhrx-Uzqtnr-Pjarsl Hx Past Med/Social Hx: Reviewed Nursing Past Med/Soc Hx Patient Social History Alcohol Use: Denies Use Number of Drinks Today: EE Alcohol Beverage of Choice: [place] Recreational Drug Use: No Smoking Status: Current Someday Smoker Type Used: Cigarettes Former Smoker, Quit: Aug 15, 2016 2nd Hand Smoke Exposure: No Recent Hopitalizations: No Seasonal Allergies Seasonal Allergies: Yes Past Medical History Surgeries: No Respiratory: Yes Asthma Cardiac: No Neurological: No Reproductive Disorders: No Genitourinary: No Gastrointestinal: No Musculoskeletal: No Endocrine: No HEENT: No Cancer: No Psychosocial: No Integumentary: Yes (chronic since 2016 reocurrance Eczematous vs contatc dermatitis) Eczema, Pruritis, Recent Skin Changes Blood Disorders: No Family Medical History No Pertinent Family Hx Physical Exam Vital Signs - First Documented 03/02/20 03/02/20 19:33 19:46 Temp 36.6 Pulse 113 Resp 26 B/P (MAP) 132/110 (117) Pulse Ox 92 O2 Delivery Nasal Cannula O2 Flow Rate 2.00 FiO2 28 Capillary Refill : Height: 5'10.00" Weight: 210lbs. oz. 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, no motor/sensory deficits, alert, normal mood/affect, oriented x 3 Skin: normal color, warm/dry Progress/Results/Core Measures Suspected Sepsis SIRS Temperature: Pulse: Respiratory Rate: Laboratory Tests 03/02/20 19:26: White Blood Count 11.5H Blood Pressure / Mean: Laboratory Tests 03/02/20 19:26: Creatinine 1.03, Platelet Count 268, Total Bilirubin 0.5 Results/Orders Lab Results Laboratory Tests Test 03/02/20 19:26 03/02/20 20:44 Range/Units White Blood Count 11.5 H 4.3-11.0 10^3/uL Red Blood Count 5.24 4.35-5.85 10^6/uL Hemoglobin 15.3 13.3-17.7 G/DL Hematocrit 46 40-54 % Mean Corpuscular Volume 87 80-99 FL Mean Corpuscular Hemoglobin 29 25-34 PG Mean Corpuscular Hemoglobin Concent 33 32-36 G/DL Red Cell Distribution Width 12.5 10.0-14.5 % Platelet Count 268 130-400 10^3/uL Mean Platelet Volume 9.9 7.4-10.4 FL Neutrophils (%) (Auto) 54 42-75 % Lymphocytes (%) (Auto) 34 12-44 % Monocytes (%) (Auto) 6 0-12 % Eosinophils (%) (Auto) 6 0-10 % Basophils (%) (Auto) 0 0-10 % Neutrophils # (Auto) 6.2 1.8-7.8 X 10^3 Lymphocytes # (Auto) 3.9 1.0-4.0 X 10^3 Monocytes # (Auto) 0.7 0.0-1.0 X 10^3 Eosinophils # (Auto) 0.7 H 0.0-0.3 10^3/uL Basophils # (Auto) 0.0 0.0-0.1 10^3/uL Sodium Level 141 135-145 MMOL/L Potassium Level 3.6 3.6-5.0 MMOL/L Chloride Level 104 98-107 MMOL/L Carbon Dioxide Level 25 21-32 MMOL/L Anion Gap 12 5-14 MMOL/L Blood Urea Nitrogen 12 7-18 MG/DL Creatinine 1.03 0.60-1.30 MG/DL Estimat Glomerular Filtration Rate > 60 BUN/Creatinine Ratio 12 Glucose Level 112 H 70-105 MG/DL Calcium Level 9.1 8.5-10.1 MG/DL Corrected Calcium 9.0 8.5-10.1 MG/DL Total Bilirubin 0.5 0.1-1.0 MG/DL Aspartate Amino Transf (AST/SGOT) 65 H 5-34 U/L Alanine Aminotransferase (ALT/SGPT) 71 H 0-55 U/L Alkaline Phosphatase 67 40-136 U/L Lactate Dehydrogenase 271 H 125-220 U/L C-Reactive Protein High Sensitivity 0.99 H 0.00-0.50 MG/DL Total Protein 7.4 6.4-8.2 GM/DL Albumin 4.1 3.2-4.5 GM/DL Procalcitonin 0.04 <0.10 NG/ML My Orders Orders - KATY KIM MD Albuterol/Ipra Inhalation Soln (Duoneb I (03/02/20 19:31) Ed Iv/Invasive Line Start (03/02/20 19:37) Ns Iv 1000 Ml (Sodium Chloride 0.9%) (03/02/20 19:37) Methylprednisolone Sod Succ (Solu-Medrol (03/02/20 19:45) Magnesium 1 Gm/100 Ml Ivpb (Magnesium [place] (03/02/20 19:45) Albuterol/Ipra Inhalation Soln (Duoneb I (03/02/20 19:45) Svn Small Volume Nebulizer (03/02/20 19:37) Diphenhydramine Injection (Benadryl Inje (03/02/20 19:45) Cbc With Automated Diff (03/02/20 19:39) Comprehensive Metabolic Panel (03/02/20 19:39) Procalcitonin (Pct) (03/02/20 19:39) Hs C Reactive Protein (03/02/20 19:39) LDH (03/02/20 19:39) Chest 1 View, Ap/Pa Only (03/02/20 19:39) Coronavirus Sars-Cov-2 So 2019 (03/02/20 19:39) Albuterol Pre-Mix Nebs (Rt) (Proventil (03/02/20 19:55) Medications Given in ED Current Medications Medications Dose Ordered Sig/Rita Route Start Time Stop Time Status Last Admin Dose Admin Diphenhydramine HCl 25 mg ONCE ONCE IVP 03/02/20 19:45 03/02/20 19:46 DC 03/02/20 19:56 25 MG Magnesium Sulfate/ Dextrose 100 ml @ 100 mls/hr ONCE ONCE IV 03/02/20 19:45 03/02/20 20:44 DC 03/02/20 19:57 100 MLS/HR Methylprednisolone Sodium Succinate 125 mg ONCE ONCE IVP 03/02/20 19:45 03/02/20 19:46 DC 03/02/20 19:56 125 MG Vital Signs/I&O 03/02/20 03/02/20 03/02/20 19:33 19:46 19:47 Temp 36.6 Pulse 113 Resp 26 B/P (MAP) 132/110 (117) Pulse Ox 92 92 93 O2 Delivery Nasal Cannula Nasal Cannula Nasal Cannula O2 Flow Rate 2.00 2.00 FiO2 28 28 Capillary Refill : Progress Note #1: Time: 20:48 Progress Note Patient was seen and examined upon arrival. He received a DuoNeb by EMS but was still very tight and wheezy and hypoxic with oxygen saturation 88 percent. Nasal cannula was applied. Another DuoNeb treatment was ordered. This is followed by an additional albuterol treatment. He was further medically treated with IV normal saline, a gram of magnesium, Solu-Medrol 125 mg IV, and Benadryl. Oxygen saturation is now 93 percent on room air. Nasal cannula has been removed. Because patient has had increasing shortness of breath over the past few days, a COVID swab has been obtained. Progress Note #2: Time: 21:25 Progress Note Patient was observed for about 30 minutes on room air after treatments. He maintained oxygen saturations in the 93-97 percent range. He was not in any respiratory distress and wheezing had improved. He desired to return home. We discussed further actions to treat his asthma including quitting smoking (he still smokes about 2 cigarettes a day), continued use of antihistamines, adding Flonase, short-term steroids, and potentially adding further maintenance therapies by his primary care provider such as inhaled steroids, Singulair, etc. Diagnostic Imaging Diagonstic Imaging: Xray Plain Films/CT/US/NM/MRI: chest Comments Chest x-ray viewed by me and compared with prior. Report reviewed reviewed. See report below: NAME: KARLO HEBERT [facility] REC#: [id number] PT STATUS: REG ER : 1955 PHYSICIAN: KATY KIM MD ADMIT DATE: 03/02/20/ER Draft Date of Exam:03/02/20 CHEST 1 VIEW, AP/PA ONLY INDICATION: Respiratory distress. EXAMINATION: Portable erect AP chest at 8:15 p.m. FINDINGS: There is a better inspiratory effort on this study than on the prior exam of 11/13/2019. Allowing for this technical factor the heart size is stable and within normal limits. The lungs are clear. There is no evidence for failure, pneumonia or for a pleural effusion. The mediastinum is not widened. The osseous structures are intact. IMPRESSION: There is no evidence for active disease. Dictated on workstation # [id number] Dict: 03/02/202027 Trans: 03/02/202038 [facility] [id number] Interpreted by: MARANDA GAMBOA MD Departure Impression Primary Impression: Asthma exacerbation Qualified Codes: J45.901 - Unspecified asthma with (acute) exacerbation Additional Impressions: Hypoxia Environmental allergies Disposition: 01 HOME, SELF-CARE Condition: Improved Departure-Patient Inst. Decision time for Depature: 21:17 Referrals: [facility] (PCP/Family) Primary Care Physician Patient Instructions: Asthma, Adult (DC) Add. Discharge Instructions: Drink plenty of clear liquids to stay well-hydrated. Quit smoking immediately and completely. Seek help from your primary care provider if you need help quitting. Complete the entire course of steroids as prescribed. Start your course of steroids in the morning. Also start steroid nasal spray and use throughout the entire allergy season. Return to care or call 911 if you have more severe episodes. Use the DuoNeb treatments in your nebulizer machine every 4 hours for the next 24-48 hours to prevent attacks and reduced wheezing. Use the albuterol inhaler or nebulizers in between the DuoNeb treatments if needed for further treatment of wheezing or shortness of breath. Follow-up with your primary care provider as soon as possible to discuss a maintenance treatment plan for asthma. Continue Zyrte All discharge instructions reviewed with patient and/or family. Voiced understanding. Scripts Fluticasone Propionate (Flonase Allergy Relief) 9.9 Ml [place].susp 2 SPRAY NSEACH DAILY, #1 EACH 11 Refills 2 SPRAYS PER NOSTRIL DAILY X 2 DAYS THEN 1 SPRAY DAILY Prov: KATY KIM MD 03/02/20 Prednisone (Prednisone) 20 Mg Tab 40 MG PO DAILY, #8 TAB 0 Refills Prov: KATY KIM MD 03/02/20 Ipratropium/Albuterol Sulfate (Iprat-Albut 0.5-3(2.5) mg/3 ml) 3 Ml Ampul.neb 3 ML IH Q4H PRN for SHORTNESS OF BREATH, #25 EACH Prov: KATY KIM MD 03/02/20 Copy Copies To 1: REDD SCHERER JOSHUA T MD Mar 02, 2020 19:57
[2020-03-02 20:09] LABS: ALANINE AMINOTRANSFERASE 71 U/L (0-55); ALBUMIN 4.1 GM/DL (3.2-4.5); ALKALINE PHOSPHATASE 67 U/L (40-136); BILIRUBIN,TOTAL 0.5 MG/DL (0.1-1.0); BUN/CREATININE RATIO 12; CALCIUM 9.1 MG/DL (8.5-10.1); CARBON DIOXIDE 25 MMOL/L (21-32); CREATININE SERUM 1.03 MG/DL (0.60-1.30); GFR ESTIMATED > 60; GLUCOSE 112 MG/DL (70-105); TOTAL PROTEIN 7.4 GM/DL (6.4-8.2)
[2020-03-02 20:34] LABS: CHLORIDE 104 MMOL/L (98-107); POTASSIUM 3.6 MMOL/L (3.6-5.0); SODIUM 141 MMOL/L (135-145)
--- NOTE | 2020-03-02 20:40 | Diagnostic Imaging Report ---
INDICATION: Respiratory distress. EXAMINATION: Portable erect AP chest at 8:15 p.m. FINDINGS: There is a better inspiratory effort on this study than on the prior exam of 11/13/2019. Allowing for this technical factor the heart size is stable and within normal limits. The lungs are clear. There is no evidence for failure, pneumonia or for a pleural effusion. The mediastinum is not widened. The osseous structures are intact. IMPRESSION: There is no evidence for active disease. Dictated by: Dictated on workstation # [id number]
[2020-03-02] MEDS ORDERED: FLUT9.9S NSEACH (21:21)
[2020-03-02] MEDS ORDERED: PRD20T PO (21:21)
[2020-03-02] MEDS ORDERED: IPRA3AMP31 IH (21:21)
[2020-03-02 21:47] VITALS: BP 120/81
== END 2020-03-02 21:31 | disposition home or self-care (01) ==
LOC: EDUNIT# 19:22 → ER 19:23
DX: J45.901 Unspecified asthma with (acute) exacerbation (principal); R09.02 Hypoxemia; T78.40XA Allergy, unspecified, initial encounter; F17.210 Nicotine dependence, cigarettes, uncomplicated; Z88.0 Allergy status to penicillin; Z79.51 Long term (current) use of inhaled steroids; Z79.52 Long term (current) use of systemic steroids
CPT/HCPCS: 71045; 80053; 83615; 84145; 85025; 86141; 94640; 99284; U0002; 36415; 87635